=== PATIENT | female | born 1990 | race Caucasian/White ===

== ENCOUNTER 2017-06-08 12:19 | Inpatient (IN) | payer MEDICAID ==
[~2017-06-08] VITALS: Ht 144.8 cm; Wt 85.1 kg
[2017-06-08 13:13] VITALS: BP 170/83; PULSE 62; RESP 19; Ht 144.8 cm; Wt 85.1 kg
[2017-06-08] MEDS ORDERED: PREN1TAB79 PO (13:15)
[2017-06-08 13:30] LABS: BASOPHILS % 0.3 % (0.0-2.0); EOSINOPHILS # 0.1 10^3/ul (0.0-0.5); HEMATOCRIT 38.2 % (37.0-47.0); HEMOGLOBIN 12.4 g/dl (12.0-16.0); LYMPHOCYTES # 1.5 10^3/ul (0.8-2.9); LYMPHOCYTES % 16.2 % (15.0-51.0); MEAN CORPUSCULAR HEMOGLOBIN 27.8 pg (29.0-33.0); MEAN CORPUSCULAR HGB CONC 32.5 g/dl (32.0-37.0); MEAN CORPUSCULAR VOLUME 85.7 fl (82.0-101.0); MEAN PLATELET VOLUME 11.3 fl (7.4-10.4); MONOCYTE # 0.4 10^3/ul (0.3-0.9); MONOCYTES % 4.5 % (0.0-11.0); NEUTROPHILS % 77.4 % (39.0-77.0); NUCLEATED RED BLOOD CELLS% 0.2 /100WBC (0.0-0.0); PLATELET COUNT 362 10^3/UL (140-415); RED BLOOD COUNT 4.46 10^6/ul (4.20-5.40); RED CELL DISTRIBUTION WIDTH 14.4 % (11.5-14.5)
[2017-06-08] MEDS ORDERED: LACTATED RINGER'S 250 ML IV ONE (13:30)
[2017-06-08 13:53] LABS: INR 0.81; PROTIME 11.2 Sec (12.2-14.2); PT RATIO 0.9
[2017-06-08 13:54] LABS: PARTIAL THROMBOPLASTIN TIME 24.7 Sec (25.0-35.0)
[2017-06-08 14:05] LABS: ALBUMIN 3.7 g/dl (3.3-4.9); ALBUMIN/GLOBULIN RATIO 0.97; BILIRUBIN,INDIRECT 0.1 mg/dl (0-1.1); BILIRUBIN,TOTAL 0.1 mg/dl (0.2-1.3); CALCIUM 9.4 mg/dl (8.4-10.2); CREATININE 0.58 mg/dl (0.44-1.00); POTASSIUM 4.4 mmol/L (3.5-5.1); TOTAL PROTEIN 7.5 g/dl (6.1-8.1); URIC ACID 6.1 mg/dl (3.1-7.9)
--- NOTE | 2017-06-08 14:56 | TRIAGE ---
OB Triage Datetime Report Generated by CPN: 06/08/2017 14:56 Datetime: 06/08/2017 14:53 Stage of : OB Triage Maternal Assessment Level of Consciousness: Fully Conscious DTR's/Clonus: DTRs 1+ Headache: Occipital Breath Sounds, Left: Clear and Equal Breath Sounds, Right: Clear and Equal Nausea/Vomiting: Denies RUQ Epigastric Pain: Denies Labor Evaluation Frequency: NONE Monitor Mode: External Resting Tone [place]: Relaxed Heart Rate FHR Baseline Rate: 145 Monitor Mode: External US Variability: Moderate 6-25 bpm Accelerations: 15X15 Decelerations: None Category: Category I Pain Assessment Pain Scale: 0 Pain Presence: None/Denies Pain Type: N/A Pain Goal: 3 Vaginal Exam Membrane Status: Intact Datetime: 06/08/2017 13:58 Stage of : OB Triage Maternal Assessment Level of Consciousness: Fully Conscious DTR's/Clonus: DTRs 1+ Headache: Occipital Breath Sounds, Left: Clear and Equal Breath Sounds, Right: Clear and Equal Nausea/Vomiting: Denies RUQ Epigastric Pain: Denies Labor Evaluation Frequency: 4-5 Monitor Mode: External Duration (sec)2399: 60 Quality: Mild Pattern: Normal: <= 5 Contractions in 10 Minutes Resting Tone [place]: Relaxed Heart Rate FHR Baseline Rate: 145 Monitor Mode: External US Variability: Moderate 6-25 bpm Accelerations: 15X15 Decelerations: None Category: Category I Pain Assessment Pain Scale: 0 Pain Presence: None/Denies Pain Type: N/A Pain Goal: 3 Vaginal Exam Membrane Status: Intact Datetime: 06/08/2017 13:35 Stage of : OB Triage Datetime: 06/08/2017 13:00 Stage of : OB Triage Maternal Assessment Level of Consciousness: Fully Conscious DTR's/Clonus: DTRs 1+ Headache: Occipital Breath Sounds, Left: Clear and Equal Breath Sounds, Right: Clear and Equal Nausea/Vomiting: Denies RUQ Epigastric Pain: Denies Monitor Mode: External Duration (sec)2399: 60 Quality: Mild Pattern: Normal: <= 5 Contractions in 10 Minutes Resting Tone [place]: Relaxed Heart Rate FHR Baseline Rate: 150 Monitor Mode: External US Variability: Moderate 6-25 bpm Accelerations: 15X15 Decelerations: None Category: Category I Pain Assessment Pain Scale: 0 Pain Presence: None/Denies Pain Type: N/A Pain Goal: 3 Vaginal Exam Membrane Status: Intact Datetime: 06/08/2017 12:48 Maternal Assessment Level of Consciousness: Fully Conscious DTR's/Clonus: DTRs 1+ Headache: Occipital Blurred Vision: No Respiratory Effort: Unlabored Breath Sounds, Left: Clear and Equal Breath Sounds, Right: Clear and Equal Nausea/Vomiting: Denies RUQ Epigastric Pain: Denies Facial Edema: 2+ Labor Evaluation Frequency: X2 Monitor Mode: External Duration (sec)2399: 60 Quality: Mild Pattern: Normal: <= 5 Contractions in 10 Minutes Resting Tone [place]: Relaxed Heart Rate FHR Baseline Rate: 150 Monitor Mode: External US Variability: Moderate 6-25 bpm Accelerations: 15X15 Decelerations: None Category: Category I Pain Assessment Pain Scale: 0 Pain Presence: None/Denies Pain Type: N/A Pain Goal: 3 Vaginal Exam Membrane Status: Intact Datetime: 06/08/2017 12:25 Assessment Type: Triage Maternal Assessment Level of Consciousness: Fully Conscious DTR's/Clonus: DTRs 2+; No Clonus Headache: Denies Blurred Vision: No Respiratory Effort: Unlabored; Regular Rhythm; Equal Expansion Breath Sounds, Left: Clear and Equal Breath Sounds, Right: Clear and Equal Nausea/Vomiting: Denies RUQ Epigastric Pain: Denies Lower Extremities Edema: Bilateral Lower Extremities Degree: 1+ Upper Extremities Edema: None Degree: None Facial Edema: None Fall Risk Assessment History of Falling: (0) No Secondary Diagnosis: (0) No Ambulatory Aid: (0) Bedrest/Nurse Assist IV Therapy: (0) No Gait: (0) Normal/Bedrest/Immobile Mental Status: (0) Oriented to Own Ability Fall Score: 0 Fall Risk Score Definition: No Risk: No action required Datetime: 06/08/2017 12:13 Time of Arrival: 06/08/2017 12:13 EGA: 33.3 Arrived By: Ambulatory Arrived From: Other Unit in Hospital Chief Complaint: PT SENT FROM PERINATOLOGY FOR UNCOMPLIANT INSULING USE AND PT HAS NOT BEEN CHECKI NG HER SUGAR SINCE THURSDAY NOR USIN HER INSULING BECAUSE SHE GOT A HEADACHE AND FOR ELEVATED BLOOD [place] ESSURES Movement: Present Contractions: Denies/Absent Rupture of Membranes: Denies Vaginal Discharge: Denies Recent Sexual Intercouse: Denies Abdominal Trauma: Not Applicable Additional Patient Complaints: NONE Time Provider Notified: 06/08/2017 12:13 Provider Notified: RAVEN Initial Plan: MONITOR, BLOOD SUGARS, PIH LABS, LR IV HYDRATION
[2017-06-08 15:34] LABS: ADD UMIC NO; UR ASCORBIC ACID NEGATIVE (NEGATIVE); UR BILIRUBIN (Dip) NEGATIVE (NEGATIVE); UR BLOOD (Dip) NEGATIVE (NEGATIVE); UR CLARITY CLEAR (CLEAR); UR COLOR STRAW (YELLOW); UR GLUCOSE (Dip) NEGATIVE (NEGATIVE); UR KETONES (Dip) NEGATIVE (NEGATIVE); UR LEUKOCYTE ESTERASE (Dip) NEGATIVE Leu/ul (NEGATIVE); UR NITRITE (Dip) NEGATIVE (NEGATIVE); UR SPECIFIC GRAVITY (Dip) 1.003 (1.003-1.030); UR TOTAL PROTEIN (Dip) NEGATIVE (NEGATIVE); UR UROBILINOGEN (Dip) NEGATIVE (NEGATIVE)
[2017-06-08] MEDS: LACTATED RINGER'S 1,000 ML IV SCH (15:43)
[2017-06-08] MEDS ORDERED: GLUCOSE GEL 15 GRAM TUBE BUCCAL PRN (16:00)
[2017-06-08] MEDS ORDERED: GLUCAGON 1 MG INJ IM PRN (16:00)
[2017-06-08] MEDS ORDERED: DEXTROSE 50% 50 ML SYRINGE IV PRN ×2 (16:00)
[2017-06-08] MEDS ORDERED: GLUCOSE GEL 15 GRAM TUBE PO PRN ×2 (16:00)
[2017-06-08] MEDS: ACCU-CHEK XX SCH ×2 (17:35→22:00)
--- NOTE | 2017-06-08 17:52 | RADRPT ---
PROCEDURE: CERVICAL LENGTH ULTRASOUND CLINICAL INDICATION: labor at 33 weeks gestational age. TECHNIQUE: Trans-vaginal imaging of the cervical canal was performed utilizing jennings-scale imaging. Sagittal and transverse images were obtained. Trans-abdominal images were also obtained. The maribel ges were reviewed on a PACS workstation. COMPARISON: None. FINDINGS: There is a single live intrauterine . heart rate is 157 beats per minute. Position is breech and placenta is anterior grade II. There is no placenta previa. The cervix is closed with a length of 5.9 cm. IMPRESSION: 1. Cervical length is 5.9 cm. RPTAT: QQ .Brooks Sharp MD, MD Date Time Electronically viewed and signed by .Brooks Sharp MD, on 06/08/2017 17:52 .R/
[2017-06-08] MEDS ORDERED: ACCU-CHEK XX SCH ×2 (19:35→20:05)
--- NOTE | 2017-06-08 20:09 | RADRPT ---
AMENDMENT: 06/09/2017 1:16:14 AM Foster Davis Md ADDENDUM: YOJANA is 8.8 cm. First line of Impression should read 1. Single live intrauterine fetus, breech presentation. PROCEDURE: US Obstetrical , limited CLINICAL INDICATION: Elevated blood pressure, noncompliant diabetes, biophysical profile with YOJANA TECHNIQUE: Multiple real-time images were acquired of the patient's maternal abdomen utilizing a curved array transducer. COMPARISON: 06/08/2017 FINDINGS: There is a single live intrauterine fetus positioned breech.. The placenta is implanted anteriorly and is grade 1. There is no placenta previa or abruptio. The amniotic fluid index measures 88.3 millimeter, which falls between the 5th and 50th percentile a nd is therefore normal. The heart rate is 144 beats per minute. Biophysical profile score: 8/8. IMPRESSION: 1. Single live 8-year in fetus, breech presentation. 2. Anterior placenta, grade 1, no previa. 3. Amniotic fluid index falls within the lower limits of normal. 4. Biophysical profile score: 8/8. .Foster Davis MD, Date Time Electronically viewed and signed by .Foster Davis MD, MD on 06/09/2017 01:16 .K/
[2017-06-09] MEDS: LACTATED RINGER'S 1,000 ML IV SCH (00:08)
--- NOTE | 2017-06-09 01:09 | HP ---
Date/Time of Note Date/Time of Note DATE: 06/09/17 TIME: 00:48 OB - History Hx of Present Free Text/Dictation 27 Year-old G1 with SIUP at 33 3/7 weeks [address] [place] [address] us with GDM admitted for control of her BS. She states was diagnosed with GDM one month ago, placed on insulin, however she did not get any insulin in last week. She is not sure how much insulin previously used and it seems might never receive it. She states good movement. She denies nausea, vomiting, shortness of breath, chest pain, abdominal pain, contractions, headache, visual changes, vaginal bleeding or LOF. Last Menstrual Period: Nov 19, 2016 Estimated Due Date: Jul 24, 2017 : 1 Para: 0 Spontaneous : 0 Therapeutic : 0 Care: Good Care Ultrasounds: Normal mid trimester US Obstetrical Complications: Gestational Diabetes, Gestational Hypertension Medical Complications: Other (As noted above) Past Family/Social History * Past Medical, Surgical, Family and Obstetric Histories reviewed from chart. Blood Type: O+ Rubella: immune RPR/VDRL: Negative GBS Status: Unknown HBsAG: Negative OB Admission Exam Vital Signs Vital Signs Vital Signs Date Time Temp Pulse Resp B/P Pulse Ox O2 Delivery O2 Flow Rate FiO2 06/08/17 13:13 98.2 62 19 170/83 99 Room Air Physical Exam HEENT: WNL Heart: Rhythm Normal Lungs: Clear Abdomen: WNL Extremities: Normal Reflexes: Normal Cervical Dilatation: None Effacement: 0% Station: Ballotable Membranes: Intact Heart Rate: 130's Accelerations: Accelerations Present Decelerations: No Decelerations Varibility: Moderate Contractions on Admission: None Last 72 hourBlood Glucose Bedside Glucose - 72 Hours Test 06/08/17 12:37 06/08/17 17:25 06/08/17 20:07 Bedside Glucose 111mg/dL (70-220) 86mg/dL (70-220) 100mg/dL (70-220) Last 72 hours Lab Results CBC & BMP 06/08/17 13:09 Liver Function Test 06/08/17 13:09 Alanine Aminotransferase (ALT/SGPT) 50 Albumin 3.7 Alkaline Phosphatase 253 H Aspartate Amino Transf (AST/SGOT) 41 Direct Bilirubin 0.00 Total Protein 7.5 OB Assessment/Plan Other plan: 27 Year-old G1 with SIUP at 33 3/7 weeks with GDM and GHTN 1) Care: - FHR: No sign of metabolic acidosis- Category I - Continuous EFM, toco - PNV daily - Labs and us reviewed with patient - O+/Rubella: Immune 2) GDM: - Recent BS 101 and 100. Currently is not on any medication. Will cont to check FBS and 2 hPP, base of her BS log will make a decision regarding only diabetic diet or medical treatment. Nutrition consult ordered. 3) GHTN: She had elevated BP on admission, however all BPs since are nml. Labs : wnl except uric acid of 6.1. She is collecting 24 h urine. No s/sx of preeclampsia with severe features. - Please see the orders - Admission, and expectations were discussed in detail. All questions answered AURY ROCKWELL Jun 09, 2017 01:03
[2017-06-09] MEDS ORDERED: PRENATAL VITAMIN PO SCH (09:00)
[2017-06-09] MEDS ORDERED: FERROUS SULFATE (EC) 325 MG TAB PO SCH (09:00)
[2017-06-09 15:49] LABS: SCRET 0.58 mg/dl (0.44-1.00)
== END 2017-06-09 16:50 | disposition home or self-care (01) | DRG 781 ==
LOC: L-D 12:19 → OBT 12:19 → OBG 14:53 → OBT 14:53
PROVIDERS: ADMIT Obstetrics & Gynecology; ATTEND Obstetrics & Gynecology
PROC: 4A0HX4Z Measurement of Products of Conception, Cardiac Electrical Activity, External Approach (ICD-10-PCS; principal; 2017-06-08)
DX: O24.419 Gestational diabetes mellitus in pregnancy, unspecified control (principal); O13.3 Gestational [pregnancy-induced] hypertension without significant proteinuria, third trimester; Z91.14 Patient's other noncompliance with medication regimen; Z3A.33 33 weeks gestation of pregnancy
CPT/HCPCS: 36415; 76817; 76818; 80053; 81003; 82575; 82962; 84156; 84560; 85025; 85610; 85730; 86900; 86901; 96360; 96361; G0463; J7120

== ENCOUNTER 2017-06-11 13:17 | Outpatient (CLI) | payer MEDICAID ==
[~2017-06-11] VITALS: Ht 144.8 cm; Wt 71.0 kg
[~2017-06-11 13:17] MED LIST: PREN1TAB79 PO
[2017-06-11 13:44] VITALS: Ht 144.8 cm; Wt 71.0 kg
[2017-06-11 13:45] VITALS: BP 163/90; PULSE 70; RESP 18
[2017-06-11] MEDS ORDERED: LABE200T25 PO (13:54)
[2017-06-11] MEDS ORDERED: METF500T4 PO (13:56)
[2017-06-11 15:00] LABS: BASOPHILS % 0.4 % (0.0-2.0); EOSINOPHILS # 0.1 10^3/ul (0.0-0.5); EOSINOPHILS % 0.8 % (0.0-7.0); HEMATOCRIT 35.8 % (37.0-47.0); HEMOGLOBIN 11.6 g/dl (12.0-16.0); LYMPHOCYTES # 1.3 10^3/ul (0.8-2.9); LYMPHOCYTES % 17.5 % (15.0-51.0); MEAN CORPUSCULAR HEMOGLOBIN 27.7 pg (29.0-33.0); MEAN CORPUSCULAR HGB CONC 32.4 g/dl (32.0-37.0); MEAN CORPUSCULAR VOLUME 85.4 fl (82.0-101.0); MEAN PLATELET VOLUME 11.6 fl (7.4-10.4); MONOCYTE # 0.4 10^3/ul (0.3-0.9); MONOCYTES % 5.1 % (0.0-11.0); NEUTROPHIL # 5.8 10^3/ul (1.6-7.5); NEUTROPHILS % 75.5 % (39.0-77.0); NUCLEATED RED BLOOD CELLS% 0.3 /100WBC (0.0-0.0); PLATELET COUNT 315 10^3/UL (140-415); RED BLOOD COUNT 4.19 10^6/ul (4.20-5.40); RED CELL DISTRIBUTION WIDTH 14.4 % (11.5-14.5); WHITE BLOOD COUNT 7.7 10^3/ul (4.8-10.8)
[2017-06-11 15:20] LABS: ALBUMIN 3.7 g/dl (3.3-4.9); ALBUMIN/GLOBULIN RATIO 1.05; CALCIUM 9.1 mg/dl (8.4-10.2); CREATININE 0.61 mg/dl (0.44-1.00); POTASSIUM 4.8 mmol/L (3.5-5.1); TOTAL PROTEIN 7.2 g/dl (6.1-8.1); URIC ACID 6.3 mg/dl (3.1-7.9)
--- NOTE | 2017-06-11 15:28 | RADRPT ---
PROCEDURE: US OB biophysical profile. CLINICAL INDICATION: Biophysical profile TECHNIQUE: Multiple sonographic images of the pelvis were obtained. The images were reviewed on a PACS workstation. COMPARISON: None FINDINGS: There is a single live intrauterine , in cephalic presentation. A normal heart rate i s identified measuring 142.5 beats per minute. The amniotic fluid index is within normal limits valerio uring 8.4 cm. The placenta is grade 1, located anteriorly. Biophysical profile: movement 2/2 tone 2/2. breathing 2/2 YOJANA 2/2 Total 03/03 IMPRESSION: 1. Biophysical profile score of 88. 2. Single live intrauterine in cephalic presentation with normal heart rate of 142.5 bpm. 3. Normal amniotic fluid index of 8.4 cm. Physician Courtney Date Time Electronically viewed and signed by Physician Courtney on 06/11/2017 15:27 ABEL/
[2017-06-11 15:29] LABS: ADD UMIC NO; UR ASCORBIC ACID NEGATIVE (NEGATIVE); UR BACTERIA MODERATE /HPF (NONE SEEN); UR BILIRUBIN (Dip) NEGATIVE (NEGATIVE); UR BLOOD (Dip) NEGATIVE (NEGATIVE); UR CLARITY SLIGHTLY CLOUDY (CLEAR); UR COLOR STRAW (YELLOW); UR GLUCOSE (Dip) NEGATIVE (NEGATIVE); UR KETONES (Dip) NEGATIVE (NEGATIVE); UR LEUKOCYTE ESTERASE (Dip) NEGATIVE Leu/ul (NEGATIVE); UR NITRITE (Dip) NEGATIVE (NEGATIVE); UR RBC 0 /HPF (0-5); UR SPECIFIC GRAVITY (Dip) 1.002 (1.003-1.030); UR SQUAMOUS EPITHELIAL CELL MODERATE /HPF (FEW); UR TOTAL PROTEIN (Dip) NEGATIVE (NEGATIVE); UR UROBILINOGEN (Dip) NEGATIVE (NEGATIVE)
--- NOTE | 2017-06-11 16:34 | TRIAGE ---
OB Triage Datetime Report Generated by CPN: 06/11/2017 16:34 Datetime: 06/11/2017 16:00 Stage of : OB Triage Maternal Assessment Level of Consciousness: Fully Conscious Labor Evaluation Frequency: NONE Monitor Mode: External Resting Tone [place]: Relaxed Heart Rate FHR Baseline Rate: 145 Monitor Mode: External US Variability: Moderate 6-25 bpm Accelerations: 15X15 Decelerations: None Pain Assessment Pain Scale: 0 Pain Goal: 3 Vaginal Exam Membrane Status: Intact Vaginal Bleeding: None Datetime: 06/11/2017 15:00 Stage of : OB Triage Assessment Type: Triage Maternal Assessment Level of Consciousness: Fully Conscious DTR's/Clonus: DTRs 3+; No Clonus Headache: Denies Blurred Vision: No Respiratory Effort: Unlabored; Regular Rhythm; Equal Expansion Breath Sounds, Left: Clear and Equal Breath Sounds, Right: Clear and Equal Nausea/Vomiting: Denies RUQ Epigastric Pain: Denies Lower Extremities Edema: Bilateral Lower Extremities Degree: 1+ Upper Extremities Edema: None Degree: None Facial Edema: None Fall Risk Assessment History of Falling: (0) No Secondary Diagnosis: (0) No Ambulatory Aid: (0) Bedrest/Nurse Assist IV Therapy: (0) No Gait: (0) Normal/Bedrest/Immobile Mental Status: (0) Oriented to Own Ability Fall Score: 0 Fall Risk Score Definition: No Risk: No action required Labor Evaluation Frequency: NONE Monitor Mode: External Resting Tone [place]: Relaxed Heart Rate FHR Baseline Rate: 145 Monitor Mode: External US Variability: Moderate 6-25 bpm Accelerations: 15X15 Decelerations: None Category: Category I Pain Assessment Pain Scale: 0 Pain Goal: 3 Vaginal Exam Membrane Status: Intact Vaginal Bleeding: None Datetime: 06/11/2017 13:57 Labor Evaluation Frequency: 0 Monitor Mode: External Pattern: Normal: <= 5 Contractions in 10 Minutes Resting Tone [place]: Relaxed Heart Rate FHR Baseline Rate: 140 Monitor Mode: External US Variability: Moderate 6-25 bpm Accelerations: 15X15 Decelerations: None Category: Category I Datetime: 06/11/2017 13:41 Time of Arrival: 06/11/2017 13:19 EGA: 33.6 Arrived By: Ambulatory Chief Complaint: PT. CAME FROM NST FOR HIGH BP'S; BABY NOT REACTIVE; PT. A2DM. PER PT. GOT PRES CRIBED METFORMIN AND LABETALOL TODAY. Movement: Present Contractions: Denies/Absent Rupture of Membranes: Denies Vaginal Bleeding: None Vaginal Discharge: Denies Recent Sexual Intercouse: Denies Abdominal Trauma: Not Applicable Patient Complaints: None Time Provider Notified: 06/11/2017 14:09 Provider Notified: [facility] Initial Plan: TOCO/ US; BPP, PIH PANEL, 24 HOUR URINE COLLECTION- CALL LABORIST TO EVALUATE PT. Datetime: 06/09/2017 16:08 Temperature Route: Oral Pain Assessment Pain Scale: 0 Pain Goal: 3 Datetime: 06/09/2017 14:10 Stage of : Antepartum Maternal Assessment Level of Consciousness: Fully Conscious Labor Evaluation Frequency: 6UC/HR Monitor Mode: External Duration (sec)2399: 40-70 Quality: Mild Resting Tone [place]: Relaxed Heart Rate FHR Baseline Rate: 135 Monitor Mode: External US Variability: Moderate 6-25 bpm Accelerations: 15X15 Decelerations: None Category: Category I Pain Assessment Pain Scale: 0 Pain Goal: 3 Vaginal Exam Membrane Status: Intact Vaginal Bleeding: None Datetime: 06/09/2017 13:26 Monitor Mode: External Monitor Mode: External US Datetime: 06/09/2017 13:00 Stage of : Antepartum Maternal Assessment Level of Consciousness: Fully Conscious Labor Evaluation Frequency: NONE Monitor Mode: External Resting Tone [place]: Relaxed Heart Rate FHR Baseline Rate: 140 Monitor Mode: External US Variability: Moderate 6-25 bpm Accelerations: 15X15 Decelerations: None Pain Assessment Pain Scale: 0 Pain Goal: 3 Vaginal Exam Membrane Status: Intact Vaginal Bleeding: None Datetime: 06/09/2017 11:52 Stage of : Antepartum Temperature Route: Oral Datetime: 06/09/2017 11:49 Monitor Mode: External Monitor Mode: External US Datetime: 06/09/2017 11:00 Stage of : Antepartum Maternal Assessment Level of Consciousness: Fully Conscious Labor Evaluation Frequency: NONE Monitor Mode: External Resting Tone [place]: Relaxed Heart Rate FHR Baseline Rate: 135 Monitor Mode: External US Variability: Moderate 6-25 bpm Accelerations: 15X15 Decelerations: None Category: Category I Pain Assessment Pain Scale: 0 Pain Goal: 3 Vaginal Exam Membrane Status: Intact Vaginal Bleeding: None Datetime: 06/09/2017 09:00 Stage of : Antepartum Maternal Assessment Level of Consciousness: Fully Conscious Labor Evaluation Frequency: NONE Monitor Mode: External Resting Tone [place]: Relaxed Heart Rate FHR Baseline Rate: 135 Monitor Mode: External US Variability: Moderate 6-25 bpm Accelerations: 15X15 Decelerations: None Category: Category I Pain Assessment Pain Scale: 0 Pain Goal: 3 Vaginal Exam Membrane Status: Intact Vaginal Bleeding: None Datetime: 06/09/2017 08:59 Bedside Blood Glucose: 91 Datetime: 06/09/2017 08:00 Stage of : Antepartum Maternal Assessment Level of Consciousness: Fully Conscious Labor Evaluation Frequency: 1uc/hr Monitor Mode: External Duration (sec)2399: 70 Quality: Mild Resting Tone [place]: Relaxed Heart Rate FHR Baseline Rate: 145 Monitor Mode: External US Variability: Moderate 6-25 bpm Accelerations: 15X15 Decelerations: None Category: Category I Pain Assessment Pain Scale: 0 Pain Goal: 3 Vaginal Exam Membrane Status: Intact Vaginal Bleeding: None Datetime: 06/09/2017 07:34 Stage of : Antepartum Temperature Route: Oral Datetime: 06/09/2017 07:32 Monitor Mode: External Monitor Mode: External US Datetime: 06/09/2017 07:30 Assessment Type: Ongoing Assessment Maternal Assessment Level of Consciousness: Fully Conscious DTR's/Clonus: DTRs 2+; No Clonus Headache: Denies Blurred Vision: No Respiratory Effort: Unlabored; Regular Rhythm; Equal Expansion Breath Sounds, Left: Clear and Equal Breath Sounds, Right: Clear and Equal Nausea/Vomiting: Denies RUQ Epigastric Pain: Denies Lower Extremities Edema: Bilateral Lower Extremities Degree: 1+ Upper Extremities Edema: None Degree: None Facial Edema: None Fall Risk Assessment History of Falling: (0) No Secondary Diagnosis: (0) No Ambulatory Aid: (0) Bedrest/Nurse Assist IV Therapy: (20) Yes Gait: (0) Normal/Bedrest/Immobile Mental Status: (0) Oriented to Own Ability Fall Score: 20 Fall Risk Score Definition: No Risk: No action required Datetime: 06/09/2017 07:02 Heart Rate FHR Baseline Rate: 150 Datetime: 06/09/2017 07:00 Stage of : Antepartum Maternal Assessment Level of Consciousness: Fully Conscious Labor Evaluation Frequency: 6uc/hr Monitor Mode: External Duration (sec)2399: 40-70 Quality: Mild Resting Tone [place]: Relaxed Monitor Mode: External US (Annotations: unable to monitor, baby off efm) Pain Assessment Pain Scale: 0 Pain Goal: 3 Vaginal Exam Membrane Status: Intact Vaginal Bleeding: None Datetime: 06/09/2017 06:25 Stage of : Antepartum Heart Rate FHR Baseline Rate: 140 Monitor Mode: External US Datetime: 06/09/2017 06:04 Stage of : Antepartum Headache: Denies Blurred Vision: No RUQ Epigastric Pain: Denies Facial Edema: None Monitor Mode: External Resting Tone [place]: Relaxed Heart Rate FHR Baseline Rate: 140 Monitor Mode: External US Pain Assessment Pain Scale: 0 Pain Presence: None/Denies Datetime: 06/09/2017 04:50 Stage of : Antepartum Maternal Assessment Level of Consciousness: Fully Conscious Headache: Denies Blurred Vision: No Nausea/Vomiting: Denies RUQ Epigastric Pain: Denies Facial Edema: None Monitor Mode: External Quality: Mild Pattern: Normal: <= 5 Contractions in 10 Minutes Resting Tone [place]: Relaxed Heart Rate FHR Baseline Rate: 135 Monitor Mode: External US FHR Baseline Changes: No Baseline Change Variability: Moderate 6-25 bpm Accelerations: 15X15 Decelerations: None Category: Category I Pain Assessment Pain Scale: 0 Pain Presence: None/Denies Pain Type: N/A Datetime: 06/09/2017 03:58 Stage of : Antepartum Monitor Mode: External Quality: Mild Pattern: Normal: <= 5 Contractions in 10 Minutes Resting Tone [place]: Relaxed Heart Rate FHR Baseline Rate: 135 Monitor Mode: External US FHR Baseline Changes: No Baseline Change Variability: Moderate 6-25 bpm Accelerations: 15X15 Decelerations: Variable Category: Category II Pain Assessment Pain Scale: 0 Pain Presence: None/Denies Datetime: 06/09/2017 03:00 Stage of : Antepartum Pattern: Normal: <= 5 Contractions in 10 Minutes Resting Tone [place]: Relaxed Heart Rate FHR Baseline Rate: 140 Monitor Mode: External US FHR Baseline Changes: No Baseline Change Variability: Moderate 6-25 bpm Accelerations: 15X15 Decelerations: None Category: Category I Datetime: 06/09/2017 02:00 Stage of : Antepartum Monitor Mode: External Quality: Mild Pattern: Normal: <= 5 Contractions in 10 Minutes Resting Tone [place]: Relaxed Heart Rate FHR Baseline Rate: 135 Monitor Mode: External US FHR Baseline Changes: No Baseline Change Variability: Moderate 6-25 bpm Accelerations: 15X15 Decelerations: None Category: Category I Pain Assessment Pain Scale: 0 Pain Presence: None/Denies Datetime: 06/09/2017 01:01 Labor Evaluation Frequency: 3-15 Monitor Mode: External Duration (sec)2399: 30-60 Quality: Mild Pattern: Normal: <= 5 Contractions in 10 Minutes Resting Tone [place]: Relaxed Contraction Comments: Pt denies feeling cramping or discomfort Heart Rate FHR Baseline Rate: 140 Monitor Mode: External US FHR Baseline Changes: No Baseline Change Variability: Moderate 6-25 bpm Accelerations: 15X15 Decelerations: None Category: Category I Datetime: 06/09/2017 00:15 Stage of : Antepartum Monitor Mode: External Pattern: Normal: <= 5 Contractions in 10 Minutes Resting Tone [place]: Relaxed Heart Rate FHR Baseline Rate: 140 Monitor Mode: External US FHR Baseline Changes: No Baseline Change Variability: Moderate 6-25 bpm Accelerations: 15X15 Decelerations: None Category: Category I Pain Assessment Pain Scale: 0 Pain Presence: None/Denies Pain Type: N/A Datetime: 06/08/2017 23:02 Stage of : Antepartum Monitor Mode: External Pattern: Normal: <= 5 Contractions in 10 Minutes Resting Tone [place]: Relaxed Heart Rate FHR Baseline Rate: 135 Monitor Mode: External US FHR Baseline Changes: No Baseline Change Variability: Moderate 6-25 bpm Accelerations: 15X15 Decelerations: None Category: Category I Pain Assessment Pain Scale: 0 Pain Presence: None/Denies Datetime: 06/08/2017 22:17 Stage of : Antepartum Maternal Assessment Level of Consciousness: Fully Conscious Headache: Denies Blurred Vision: No Nausea/Vomiting: Denies RUQ Epigastric Pain: Denies Monitor Mode: External Pattern: Normal: <= 5 Contractions in 10 Minutes Resting Tone [place]: Relaxed Heart Rate FHR Baseline Rate: 145 Monitor Mode: External US FHR Baseline Changes: No Baseline Change Pain Assessment Pain Scale: 0 Pain Presence: None/Denies Pain Type: N/A Datetime: 06/08/2017 21:16 Stage of : Antepartum Datetime: 06/08/2017 21:00 Monitor Mode: External Pattern: Normal: <= 5 Contractions in 10 Minutes Resting Tone [place]: Relaxed Heart Rate FHR Baseline Rate: 145 Monitor Mode: External US FHR Baseline Changes: No Baseline Change Variability: Moderate 6-25 bpm Accelerations: 15X15 Datetime: 06/08/2017 20:04 Stage of : Antepartum Bedside Blood Glucose: 100 Monitor Mode: External Pattern: Normal: <= 5 Contractions in 10 Minutes Resting Tone [place]: Relaxed Heart Rate FHR Baseline Rate: 150 Monitor Mode: External US Pain Assessment Pain Scale: 0 Pain Presence: None/Denies Pain Type: N/A Datetime: 06/08/2017 19:50 Assessment Type: Ongoing Assessment Maternal Assessment Level of Consciousness: Fully Conscious DTR's/Clonus: DTRs 2+; No Clonus Headache: Denies Blurred Vision: No Respiratory Effort: Unlabored; Regular Rhythm; Equal Expansion Breath Sounds, Left: Clear and Equal Breath Sounds, Right: Clear and Equal Nausea/Vomiting: Denies RUQ Epigastric Pain: Denies Lower Extremities Edema: Bilateral Lower Extremities Degree: 1+ Upper Extremities Edema: None Degree: None Facial Edema: None Fall Risk Assessment History of Falling: (0) No Secondary Diagnosis: (0) No Ambulatory Aid: (0) Bedrest/Nurse Assist IV Therapy: (20) Yes Gait: (0) Normal/Bedrest/Immobile Mental Status: (0) Oriented to Own Ability Fall Score: 20 Fall Risk Score Definition: No Risk: No action required Datetime: 06/08/2017 19:14 Stage of : Antepartum Datetime: 06/08/2017 18:00 Labor Evaluation Frequency: 0ccassional Monitor Mode: External Duration (sec)2399: 60-90 Quality: Mild Heart Rate FHR Baseline Rate: 140 Monitor Mode: External US Variability: Moderate 6-25 bpm Accelerations: 15X15 Decelerations: None Category: Category I Datetime: 06/08/2017 17:37 Monitor Mode: Palpation Quality: Mild Comments: baby is breech by palpation and verified through u.s. Pain Presence: None/Denies Pain Assessment Comments: pt. denies uc's Datetime: 06/08/2017 17:25 Bedside Blood Glucose: 86 Datetime: 06/08/2017 17:06 Maternal Assessment Level of Consciousness: Fully Conscious Headache: Denies Blurred Vision: No Respiratory Effort: Unlabored Nausea/Vomiting: Denies RUQ Epigastric Pain: Denies Pain Presence: None/Denies Datetime: 06/08/2017 16:41 Stage of : Antepartum Maternal Assessment Level of Consciousness: Fully Conscious Headache: Denies Nausea/Vomiting: Denies RUQ Epigastric Pain: Denies Labor Evaluation Frequency: 0/hr Monitor Mode: External Heart Rate FHR Baseline Rate: 150 Monitor Mode: External US Variability: Moderate 6-25 bpm Accelerations: 10X10 Pain Assessment Pain Scale: 0 Pain Presence: None/Denies Vaginal Bleeding: None Datetime: 06/08/2017 16:39 Assessment Type: Ongoing Assessment Heart Rate FHR Baseline Rate: 150 Variability: Moderate 6-25 bpm Accelerations: 10X10 Decelerations: None Datetime: 06/08/2017 15:42 Interventions: Side to Side Decelerations: Variable Datetime: 06/08/2017 15:30 Stage of : Antepartum Datetime: 06/08/2017 15:27 Assessment Type: Admission Assessment Vaginal Bleeding: None Maternal Assessment Level of Consciousness: Fully Conscious DTR's/Clonus: DTRs 2+; No Clonus Headache: Denies Blurred Vision: No Respiratory Effort: Unlabored; Regular Rhythm; Equal Expansion Breath Sounds, Left: Clear and Equal Breath Sounds, Right: Clear and Equal Nausea/Vomiting: Denies RUQ Epigastric Pain: Denies Lower Extremities Edema: Bilateral Lower Extremities (Annotations: feet 1+ edema) Upper Extremities Edema: None Facial Edema: None Fall Risk Assessment History of Falling: (0) No Secondary Diagnosis: (0) No Ambulatory Aid: (0) Bedrest/Nurse Assist IV Therapy: (20) Yes (Annotations: rcvd. pt. on 125ml/hr lr) Gait: (0) Normal/Bedrest/Immobile Mental Status: (0) Oriented to Own Ability Fall Score: 20 Fall Risk Score Definition: No Risk: No action required Pain Assessment Pain Scale: 0 Pain Presence: None/Denies Pain Assessment Comments: pt. states she had a headache on brandi or sat. and stopped taking her i nsulin and last checked her blood sugar on brandi 06/05/17 Vaginal Exam Membrane Status: Intact Datetime: 06/08/2017 15:20 Assessment Type: Triage Datetime: 06/08/2017 15:00 Stage of : OB Triage Maternal Assessment Level of Consciousness: Fully Conscious DTR's/Clonus: DTRs 1+ Headache: Occipital Breath Sounds, Left: Clear and Equal Breath Sounds, Right: Clear and Equal Nausea/Vomiting: Denies RUQ Epigastric Pain: Denies Labor Evaluation Frequency: NONE Monitor Mode: External Resting Tone [place]: Relaxed Heart Rate FHR Baseline Rate: 145 Monitor Mode: External US Variability: Moderate 6-25 bpm Accelerations: 15X15 Decelerations: None Category: Category I Pain Assessment Pain Scale: 0 Pain Presence: None/Denies Pain Type: N/A Pain Goal: 3 Vaginal Exam Membrane Status: Intact Datetime: 06/08/2017 12:25 Fall Score: 0 Fall Risk Score Definition: No Risk: No action required Datetime: 06/08/2017 12:13 EGA: 33.3
--- NOTE | 2017-06-11 16:46 | CONS ---
Date/Time of Note Date/Time of Note DATE: 06/11/17 TIME: 16:33 Consultation Date/Type/Reason Admit Date/Time June 11, 2017 OB triage consult This patient is a 27 years old primigravida with estimated date of confinement of July 24, 2017 which makes her 33 weeks and 6 days today. She developed diabetes mellitus during this as well as elevated blood pressure for this reason she is being followed in high risk clinic with NST and biophysical profile. There was a suspicion of possible IUGR. .Today she is placed on labetalol 200 mg twice daily as well as Metformin 500 mg nightly. On examination she is a well-developed well-nourished late term with no complaint. Her general vital signs shows a hypertension with blood pressure 163/90 and then again 151/84, pulse rate of 70, respiration 18, and temperature 98.5. Reason for Consultation Eyes: No discharge, No no complaints, No other, No pain, No redness, No visual change ENT: other (Face as well as hands are somewhat edematous), No bleeding, No congestion, No discharge, No dysphagia, No no complaints, No pain, No sore throat Respiratory: No cough, No no complaints, No other, No pain, No pleuritic pain, No shortness of breath, No sputum, No wheezing Cardiovascular: No chest pain, No edema, No lightheadedness, No no complaints, No orthopenea, No other, No palpitations, No paroxysmal nocturnal dyspnea Gastrointestinal: other (No abdominal pain), No blood, No constipation, No decreased appetite, No diarrhea, No flatus, No nausea, No no complaints, No pain, No passing stool, No vomiting Genitourinary: other (Due to lack of contraction pelvic exam was not performed) , No bleeding, No discharge, No dysuria, No flank pain, No hematuria, No no complaints Musculoskeletal: No back pain, No bone/joint pain, No neck pain, No no complaints, No other, No restricted range of motion, No swelling Skin: other, No bruising, No erythema, No laceration, No no complaints, No pruritis, No rash, No skin lesions Neurologic: other (Moderate amount of edema both in hands and lower extremities knee-jerk reflexes are about 2-3+), No confusion, No dizziness, No focal-weakness, No headache, No no complaints , No seizure, No syncope Endocrine: No dry skin, No no complaints, No other, No polydypsia, No polyuria , No temp intolerance Additional Comments On the lab study her serum electrolytes and liver function tests are within normal limits. Urinalysis is normal no evidence of proteinuria no hematuria her CBC is also within normal limits with mild anemia with platelet of 315,000 hemoglobin of 11.6. On ultrasound study report is single live intrauterine in cephalic presentation heart rate of 142 bpm amniotic fluid index was reported 8.4 cm her biophysical profile was reported 03/03 With these sign of impending preeclampsia and possible eclampsia condition was discussed with the patient to rest at home to start collecting 24 hours urine.. And to start taking her medication labetalol 200 mg twice daily as well as metformin 500 mg every night. Return to triage immediately if severe headache chest pain visual disturbances very low movement. Other than that she will be back in 2 days with collected 24-hour urine. Social History Smoking Status: Never smoker Exam/Review of Systems Vital Signs Vitals Vital Signs Date Time Temp Pulse Resp B/P Pulse Ox O2 Delivery O2 Flow Rate FiO2 06/11/17 13:45 98.5 70 18 163/90 Room Air Results Result Diagram: 06/11/17 1426 06/11/17 1426 Results 24 hrs Laboratory Tests Test 06/11/17 14:00 06/11/17 14:26 Urine Color STRAW Urine Clarity SLIGHTLY CLOUDY A Urine pH 7.0 Urine Specific [place] 1.002 L Urine Ketones NEGATIVE Urine Nitrite NEGATIVE Urine Bilirubin NEGATIVE Urine Urobilinogen NEGATIVE Urine Leukocyte Esterase NEGATIVE Urine Microscopic RBC 0 Urine Microscopic WBC 4 Urine Squamous Epithelial Cells MODERATE Urine Bacteria MODERATE Urine Hemoglobin NEGATIVE Urine Glucose NEGATIVE Urine Total Protein NEGATIVE White Blood Count 7.7 Red Blood Count 4.19 L Hemoglobin 11.6 L Hematocrit 35.8 L Mean Corpuscular Volume 85.4 Mean Corpuscular Hemoglobin 27.7 L Mean Corpuscular Hemoglobin Concent 32.4 Red Cell Distribution Width 14.4 Platelet Count 315 Mean Platelet Volume 11.6 H Neutrophils % 75.5 Lymphocytes % 17.5 Monocytes % 5.1 Eosinophils % 0.8 Basophils % 0.4 Nucleated Red Blood Cells % 0.3 H Neutrophils # 5.8 Lymphocytes # 1.3 Monocytes # 0.4 Eosinophils # 0.1 Basophils # 0.0 Nucleated Red Blood Cells # 0.0 Sodium Level 140 Potassium Level 4.8 Chloride Level 107 Carbon Dioxide Level 24 Anion Gap 14 Blood Urea Nitrogen 8 Creatinine 0.61 Glucose Level 101 Uric Acid 6.3 Calcium Level 9.1 Total Bilirubin 0.0 L Direct Bilirubin 0.00 Indirect Bilirubin 0.0 Aspartate Amino Transf (AST/SGOT) 46 Alanine Aminotransferase (ALT/SGPT) 46 Alkaline Phosphatase 253 H Total Protein 7.2 Albumin 3.7 Globulin 3.50 H Albumin/Globulin Ratio 1.05 ALYCIA UGARTE MD Jun 11, 2017 16:45 Globulin 3.50 H Albumin/Globulin Ratio 1.05 ALYCIA UGARTE MD Jun 11, 2017 16:45
== END 2017-06-11 16:53 | disposition home or self-care (01) ==
LOC: L-D 13:17 → OBT 13:17
PROVIDERS: ATTEND Obstetrics & Gynecology
DX: O24.419 Gestational diabetes mellitus in pregnancy, unspecified control (principal); O16.3 Unspecified maternal hypertension, third trimester; Z3A.33 33 weeks gestation of pregnancy
CPT/HCPCS: 36415; 76818; 80053; 81001; 84560; 85025; Z7500; 81003; G0463

== ENCOUNTER 2017-06-13 11:20 | Inpatient (IN) | payer MEDICAID ==
[~2017-06-13] VITALS: Ht 142.2 cm; Wt 70.5 kg
[~2017-06-13 11:20] MED LIST changes: +LABE200T25 PO; +METF500T4 PO
[2017-06-13] MEDS: LACTATED RINGER'S 1,000 ML IV SCH ×3 (11:30→20:00)
[2017-06-13 12:10] LABS: BASOPHILS % 0.2 % (0.0-2.0); EOSINOPHILS # 0.1 10^3/ul (0.0-0.5); EOSINOPHILS % 0.7 % (0.0-7.0); HEMATOCRIT 34.9 % (37.0-47.0); HEMOGLOBIN 11.5 g/dl (12.0-16.0); LYMPHOCYTES # 1.6 10^3/ul (0.8-2.9); MEAN CORPUSCULAR HEMOGLOBIN 27.8 pg (29.0-33.0); MEAN CORPUSCULAR VOLUME 84.3 fl (82.0-101.0); MEAN PLATELET VOLUME 11.5 fl (7.4-10.4); MONOCYTE # 0.5 10^3/ul (0.3-0.9); MONOCYTES % 6.1 % (0.0-11.0); NEUTROPHIL # 6.1 10^3/ul (1.6-7.5); NEUTROPHILS % 73.4 % (39.0-77.0); PLATELET COUNT 324 10^3/UL (140-415); RED BLOOD COUNT 4.14 10^6/ul (4.20-5.40); RED CELL DISTRIBUTION WIDTH 14.5 % (11.5-14.5); WHITE BLOOD COUNT 8.3 10^3/ul (4.8-10.8)
[2017-06-13 12:12] LABS: ADD UMIC NO; UR ASCORBIC ACID NEGATIVE (NEGATIVE); UR BACTERIA MANY /HPF (NONE SEEN); UR BILIRUBIN (Dip) NEGATIVE (NEGATIVE); UR BLOOD (Dip) NEGATIVE (NEGATIVE); UR CLARITY SLIGHTLY CLOUDY (CLEAR); UR COLOR YELLOW (YELLOW); UR GLUCOSE (Dip) NEGATIVE (NEGATIVE); UR KETONES (Dip) NEGATIVE (NEGATIVE); UR LEUKOCYTE ESTERASE (Dip) NEGATIVE Leu/ul (NEGATIVE); UR NITRITE (Dip) NEGATIVE (NEGATIVE); UR RBC 2 /HPF (0-5); UR SPECIFIC GRAVITY (Dip) 1.003 (1.003-1.030); UR SQUAMOUS EPITHELIAL CELL MODERATE /HPF (FEW); UR TOTAL PROTEIN (Dip) NEGATIVE (NEGATIVE); UR UROBILINOGEN (Dip) NEGATIVE (NEGATIVE)
--- NOTE | 2017-06-13 12:18 | RADRPT ---
PROCEDURE: US OB. CLINICAL INDICATION: induced hypertension. Evaluate size. TECHNIQUE: Multiple sonographic images of the pelvis were obtained. The images were reviewed on a PACS workstation. COMPARISON: 06/11/2017 FINDINGS: There is a single viable intrauterine gestation. Cardiac activity is present with 173 beats per min [place]. Measurements were made in order to determine age. The results are as follows: BPD =8.1 cm HC =29.7 cm AC =29.4 cm FL =6.7 cm. Estimated gestational age of approximately 33 weeks and 2 days. The estimated date of delivery is 07/30/2017. The EFW = 2214 g . Limited by positioning. Visualized structures are normal. The placenta is anterior. There is no evidence for an abruption or placenta previa. IMPRESSION: Single viable intrauterine gestation of approximately 33 weeks and 2 days. EFW = 2214 g RPTAT:AAJJ Physician Milly Date Time Electronically viewed and signed by Physician Milly on 06/13/2017 12:18 /
[2017-06-13 12:27] VITALS: Ht 142.2 cm; Wt 70.5 kg
[2017-06-13 12:28] VITALS: BP 186/86; PULSE 68; RESP 18
[2017-06-13 12:29] LABS: ALBUMIN 3.4 g/dl (3.3-4.9); ALBUMIN/GLOBULIN RATIO 0.89; BILIRUBIN,INDIRECT 0.1 mg/dl (0-1.1); BILIRUBIN,TOTAL 0.1 mg/dl (0.2-1.3); CALCIUM 9.1 mg/dl (8.4-10.2); CREATININE 0.65 mg/dl (0.44-1.00); POTASSIUM 3.9 mmol/L (3.5-5.1); TOTAL PROTEIN 7.2 g/dl (6.1-8.1); URIC ACID 6.5 mg/dl (3.1-7.9)
--- NOTE | 2017-06-13 12:41 | RADRPT ---
PROCEDURE: US OB. CLINICAL INDICATION: induced hypertension TECHNIQUE: Transabdominal OB views of the pelvis are available for review. COMPARISON: OB ultrasound from the same day FINDINGS: Within the uterus, there is a single, live intrauterine . The presentation is cephalic. Th e heart rate is 148 beats per minute. The amniotic fluid index in four quadrants is 15.3 cm. The placenta is noted to be anterior and grade 2-3. There are no findings of abruption or previa. The biophysical profile score is 8/8. IMPRESSION: 1. Single live intrauterine with an amniotic fluid index of 15.3 cm. The biophysical pro file score is 8/8. 2. The placenta is anterior and grade 2-3. There are no findings of abruption or previa. RPTAT: QQ .Shavon Rodriguez MD, Date Time Electronically viewed and signed by .Shavon Rodriguez MD, on 06/13/2017 12:40 .F/
[2017-06-13 12:55] LABS: INR 0.82; PROTIME 11.3 Sec (12.2-14.2); PT RATIO 0.9
[2017-06-13 12:56] LABS: PARTIAL THROMBOPLASTIN TIME 25.1 Sec (25.0-35.0)
[2017-06-13] MEDS ORDERED: ACETAMINOPHEN 325 MG TAB PO PRN (13:00)
[2017-06-13] MEDS ORDERED: LABETALOL HCL 20MG INJ IV PRN ×2 (13:00→16:00)
[2017-06-13] MEDS ORDERED: MAGNESIUM SULFATE 4 GM/100 ML 100 ML IV ONE (13:00)
[2017-06-13] MEDS ORDERED: AL HYDROX/MG HYDROX/SIMETH 30 ML CUP PO PRN (13:00)
[2017-06-13 13:16] LABS: SCRET 0.65 mg/dl (0.44-1.00)
[2017-06-13] MEDS: MAGNESIUM SULFATE 20 GM/500 ML 500 ML IV SCH ×2 (13:45→22:37)
--- NOTE | 2017-06-13 15:07 | PERINOTE ---
Date/Time of Note Date/Time of Note DATE: 06/13/17 TIME: 15:00 Assessment/Recommendations Other Assessments Intrauterine at 34 weeks and 1 day of gestation Gestational diabetes, class A2 Hypertension, likely -induced as the blood pressures in early care were normal. The patient is being treated with labetalol and blood pressures on bedrest are in the normal range. Recommendations: I would continue this patient on her usual dose of labetalol, which I understand to be 200 mg twice daily. I would perform blood glucose checks fasting and 2 hours postprandial, and would institute treatment as needed. I would deliver this patient for persistent severe range blood pressures in the presence of the present dose of labetalol, or for other evidence of severe features. I would also deliver her for evidence of distress or maternal compromise. I would follow this patient closely, and if she is discharged I would perform twice weekly NSTs, weekly amniotic fluid indexes, and ultrasound evaluation of growth every 3 weeks. OB Subjective Free Text/Dictaton Patient is admitted with increased blood pressure, rule out preeclampsia. HD# 1 IUP @ 34W1D Complaints/Overnight events Patient with a history of elevated blood pressure treated with labetalol and gestational diabetes treated with metformin. She is a very unreliable historian and the doses of her medications are not known to her. Current Medications Current Medications Lactated Ringer's 1,000 ml @ 125 mls/hr Q8H IV Last administered on t 11:30; Admin Dose 125 MLS/HR; Start 06/13/17 at 12:52 Magnesium Sulfate (Magnesium Sulfate 20 Gm/500 ml) 500 ml @ 50 mls/hr Q10H IV Last administered on 06/13/17t 13:45; Admin Dose 50 MLS/HR; Start 06/13/17 at 12:52 Prenat Multivit/ [place]/Iron/Folic Ac () 1 tab DAILY PO ; Start at 09:00 Acetaminophen (Tylenol Tab) 650 mg Q4H PRN PO PAIN AND OR ELEVATED TEMP; Start 06/13/17 at 13:00 Al Hydrox/Mg Hydrox/Simethicone (Mag-Al Plus) 30 ml Q6H PRN PO GASTROINTESTINAL UPSET; Start 06/13/17 at 13:00 Labetalol HCl (Labetalol) 20 mg PRN PRN IV ELEVATED BP ; Start 06/13/17 at 16: 00 Labetalol HCl (Normodyne) 100 mg BID PO ; Start 06/13/17 at 21:00 Past Medical History Medical History: no pertinent history Surgical History: no surgical history Para: 0 : 1 Family History Significant Family History: no pertinent family hx Constitutional: no symptoms reported Eyes: no symptoms reported, denies blurred vision, denies vision change Respiratory: no symptoms reported Cardiovascular: no symptoms reported Gastrointestinal: no symptoms reported All Other Systems: Reviewed and Negative (Patient denies vaginal bleeding, loss of fluid, or uterine contractions. She reports active movement.) OB Admission Exam Physical Exam Vitals: Vital Signs Date Time Temp Pulse Resp B/P Pulse Ox O2 Delivery O2 Flow Rate FiO2 06/13/17 12:28 98.3 68 18 186/86 98 Room Air BP at the time of exam (3PM) was 132/70 Abdomen: WNL Heart Rate: 140's Accelerations: Accelerations Present Decelerations: No Decelerations Varibility: Moderate Contractions on Admission: None Last 72 hours Lab Results CBC & BMP 06/13/17 11:40 Liver Function Test 06/13/17 11:40 Alanine Aminotransferase (ALT/SGPT) 46 Albumin 3.4 Alkaline Phosphatase 239 H Aspartate Amino Transf (AST/SGOT) 38 Direct Bilirubin 0.00 Total Protein 7.2 Ultrasound Results EFW 2214 BPP 03/03 YOJANA 15.3 Ultrasound Comments: US of 06/13/17 Copies To: CC: ANGIE CARBAJAL MD, MARIE H MD Jun 13, 2017 15:07
[2017-06-13] MEDS: BETAMET NA PHOS/AC(6 MG/ML) 5ML INJ IM SCH (15:48)
--- NOTE | 2017-06-13 16:26 | HP ---
Date/Time of Note Date/Time of Note DATE: 06/13/17 TIME: 15:56 OB - History Hx of Present Free Text/Dictation June 13, 2017 Triage consult and history and physical This patient is a 27 years old primigravida with estimated date of confinement of July 24, 2017 which makes her 34.1 weeks today. She developed diabetes mellitus during this as well as elevated blood pressure for this reason she is being followed in high risk clinic with NST and biophysical profile. She was seen in triage 2 days ago.With the result of the 24 hours urine collection for protein was 440 mg .This test was repeated repeated and the result was 720 mg/dL. She is taking labetalol 100 mg twice a day as well as metformin 500 mg twice a day according to the patient. However she is not a very good reliable historian. . Today her blood pressure is 186/86 and then on repeat exam was 171/83 165/83 Physical examination :she is a well-developed well-nourished patient who speaks only [place]. Her ear nose throat appears to be normal no edema no neck vein distention no thyroidomegaly. Chest is clear to auscultation or percussion no rales. Heart normal sinus rhythm no murmur. Breasts are soft and free of masses. Abdomen is soft she does not have very frequent contractions heart tone is normal with fairly good variability and occasional accelerations. Extremity she does have about 1+ pitting edema knee-jerk reflexes about 2-3+. We did not a pelvic exam . Abnormal Ultrasound Findings: Laboratory Tests Test 06/13/17 11:25 06/13/17 11:40 06/13/17 15:29 Urine Random Creatinine 34.39mg/dl Urine Collection Duration 24hrs Urine Total Volume 24 Hours 3000ml/24hrs Urine Creatinine Timed 24hrs Creatinine Clearance 110.2mls/min Urine Total Volume (Protein) 3000mls Urine Total Protein 24 Hour mg/24hrs White Blood Count 8.310^3/ul Red Blood Count 4.1410^6/ul Hemoglobin 11.5g/dl Hematocrit 34.9% Mean Corpuscular Volume 84.3fl Mean Corpuscular Hemoglobin 27.8pg Mean Corpuscular Hemoglobin Concent 33.0g/dl Red Cell Distribution Width 14.5% Platelet Count 09720^3/UL Mean Platelet Volume 11.5fl Neutrophils % 73.4% Lymphocytes % 19.0% Monocytes % 6.1% Eosinophils % 0.7% Basophils % 0.2% Nucleated Red Blood Cells % 0.0/100WBC Neutrophils # 6.110^3/ul Lymphocytes # 1.610^3/ul Monocytes # 0.510^3/ul Eosinophils # 0.110^3/ul Basophils # 0.010^3/ul Nucleated Red Blood Cells # 0.010^3/ul Prothrombin Time 11.3Sec Prothrombin Time Ratio 0.9 INR International Normalized Ratio 0.82 Activated Partial Thromboplast Time 25.1Sec Fibrinogen 574.0mg/dl Urine Color YELLOW Urine Clarity SLIGHTLY CLOUDY Urine pH 7.0 Urine Specific [place] 1.003 Urine Ketones NEGATIVEmg/dL Urine Nitrite NEGATIVEmg/dL Urine Bilirubin NEGATIVEmg/dL Urine Urobilinogen NEGATIVEmg/dL Urine Leukocyte Esterase NEGATIVELeu/ul Urine Microscopic RBC 2/HPF Urine Microscopic WBC 6/HPF Urine Squamous Epithelial Cells MODERATE/HPF Urine Bacteria MANY/HPF Urine Hemoglobin NEGATIVEmg/dL Urine Glucose NEGATIVEmg/dL Urine Total Protein NEGATIVEmg/dl Sodium Level 137mmol/L Potassium Level 3.9mmol/L Chloride Level 108mmol/L Carbon Dioxide Level 20mmol/L Anion Gap 13 Blood Urea Nitrogen 9mg/dl Creatinine 0.65mg/dl Glucose Level 131mg/dl Uric Acid 6.5mg/dl Calcium Level 9.1mg/dl Total Bilirubin 0.1mg/dl Direct Bilirubin 0.00mg/dl Indirect Bilirubin 0.1mg/dl Aspartate Amino Transf (AST/SGOT) 38IU/L Alanine Aminotransferase (ALT/SGPT) 46IU/L Alkaline Phosphatase 239IU/L Total Protein 7.2g/dl Albumin 3.4g/dl Globulin 3.80g/dl Albumin/Globulin Ratio 0.89 Bedside Glucose 102mg/dL Current Medications Medications (Trade) Dose Ordered Sig/Annette Route PRN Reason Start Time Stop Time Status Last Admin Dose Admin Lactated Ringer's 1,000 ml @ 125 mls/hr Q8H IV 06/13/17 12:52 06/13/17 11:30 Magnesium Sulfate 100 ml @ 200 mls/hr ONCE ONCE IV 06/13/17 13:00 06/13/17 13:29 DC 06/13/17 13:12 Magnesium Sulfate (Magnesium Sulfate 20 Gm/500 ml) 500 ml @ 50 mls/hr Q10H IV 06/13/17 12:52 06/13/17 13:45 Prenat Multivit/ [facility]/Iron/Folic Ac () 1 tab DAILY PO 06/14/17 09:00 Acetaminophen (Tylenol Tab) 650 mg Q4H PRN PO PAIN AND OR ELEVATED TEMP 06/13/17 13:00 Al Hydrox/Mg Hydrox/Simethicone (Mag-Al Plus) 30 ml Q6H PRN PO GASTROINTESTINAL UPSET 06/13/17 13:00 Labetalol HCl (Labetalol) 20 mg Q10MIN PRN IV ELEVATED BP 06/13/17 13:00 06/13/17 14:21 DC 06/13/17 13:07 Labetalol HCl (Labetalol) 20 mg PRN PRN IV ELEVATED BP 06/13/17 16:00 Labetalol HCl (Normodyne) 100 mg BID PO 06/13/17 21:00 Metformin HCl (Glucophage Xr) 500 mg WITH BREAKFAST DINNE PO 06/13/17 17:35 Betamethasone Acet/Betameth SodPhos (Celestone Soluspan) 12 mg Q24H IM 06/13/17 16:00 06/14/17 16:01 06/13/17 15:48 Other Concerns: Her urinalysis basically was within normal limits, PT INR and PTT were within normal range. Fibrinogen level was 574 and then 24 hour urine protein that she collected the protein was reported 720 mg/dL however the creatinine clearance was 110. On my chemical lab test glucose was 131 electrolytes and liver function tests were within normal limits CBC she had her only slight anemia with hemoglobin of 11.5 her platelet was 324,000. Ultrasound study report was a single viable intrauterine gestation with heart tone 173 bpm estimated weight was 2214 g her amniotic fluid index was reported 15.2 cm the biophysical profile of 03/03. Plan as I mentioned she has been seen by perinatologist who agrees with all of these measures . ... Past Family/Social History * Past Medical, Surgical, Family and Obstetric Histories reviewed from chart. OB Admission Exam Vital Signs Vital Signs Vital Signs Date Time Temp Pulse Resp B/P Pulse Ox O2 Delivery O2 Flow Rate FiO2 06/13/17 12:28 98.3 68 18 186/86 98 Room Air Last 72 hourBlood Glucose Bedside Glucose - 72 Hours Test 06/13/17 15:29 Bedside Glucose 102mg/dL (70-220) Last 72 hours Lab Results CBC & BMP 06/13/17 11:40 Liver Function Test 06/13/17 11:40 Alanine Aminotransferase (ALT/SGPT) 46 Albumin 3.4 Alkaline Phosphatase 239 H Aspartate Amino Transf (AST/SGOT) 38 Direct Bilirubin 0.00 Total Protein 7.2 ALYCIA UGARTE MD Jun 13, 2017 16:13
[2017-06-13] MEDS: metFORMIN (XR) 500 MG TAB PO SCH (17:51)
[2017-06-13] MEDS ORDERED: metFORMIN 500 MG TAB PO SCH (21:00)
[2017-06-13] MEDS ORDERED: LABETALOL 200 MG TAB PO SCH (21:00)
[2017-06-13] MEDS: LABETALOL 100 MG TAB PO SCH (22:33)
[2017-06-14] MEDS ORDERED: PRENATAL VITAMIN PO SCH (09:00)
[2017-06-14] MEDS: PRENATAL VITAMIN PO SCH (09:13)
[2017-06-14] MEDS: metFORMIN (XR) 500 MG TAB PO SCH ×2 (09:14→17:19)
[2017-06-14] MEDS: LABETALOL 100 MG TAB PO SCH ×2 (09:14→21:12)
[2017-06-14] MEDS ORDERED: ONDANSETRON 4 MG INJ IV PRN (09:30)
--- NOTE | 2017-06-14 11:48 | QN ---
Documentation Comment Vital signs are stable her blood pressures running mid 130s over mid 80s, denies headache epigastric pain or blurry vision,, currently she is on metformin 500 mg twice daily breakfast and dinner, labetalol 100 mg twice daily , no longer on magnesium sulfate she has no neurological symptoms this time, we will continue present expecting management. ANGIE CARBAJAL MD Jun 14, 2017 11:48
[2017-06-14] MEDS: BETAMET NA PHOS/AC(6 MG/ML) 5ML INJ IM SCH (15:59)
[2017-06-14] MEDS: LACTATED RINGER'S 1,000 ML IV SCH ×2 (17:25→23:48)
[2017-06-15] MEDS: LACTATED RINGER'S 1,000 ML IV SCH (03:26)
[2017-06-15] MEDS: PRENATAL VITAMIN PO SCH (09:17)
[2017-06-15] MEDS: metFORMIN (XR) 500 MG TAB PO SCH (09:17)
[2017-06-15] MEDS: LABETALOL 100 MG TAB PO SCH (09:18)
--- NOTE | 2017-06-15 12:16 | NSTRPT ---
NST Information Datetime Report Generated by CPN: 06/15/2017 12:15 Datetime: 06/11/2017 10:25 NST Information EGA: 33.6 Test Number: 2 Time on Monitor: 06/11/2017 11:45 Time off Monitor: 06/11/2017 12:32 NST Duration (Min): 47 Reason for NST: Diabetes Mellitus Reason for NST Other: A2 Test and Monitor Explained: Monitor Explained; Test Explained; Verbalized Understanding Pulse: 56 Resp: 18 SBP: 164 DBP: 83 Test Evaluation NST Interventions: Reposition Patient Patient States Movement: Present Contraction Frequency: NONE FHR Baseline : 140 Variability: Minimal - <=5bpm Accelerations: 15X15 Decelerations: None FHR Category: Category II NST Results: Non-Reactive Comments: Pt to U/S, YOJANA 11.1cm, cephalic EFW 2132gms (32%), AC 31% strip reviewed by Dr. Martinez, pt to OB Triage for extended monitoring per MD orders. Electronically Signed By E-Signature: with User ID: [id number] Datetime: 06/08/2017 10:35 NST Information EGA: 33.3 Datetime: 06/08/2017 10:11 NST Duration (Min): 70
--- NOTE | 2017-06-15 14:21 | PDOCDIS ---
Discharge Instructions CONDITION Patient Condition: Good HOME CARE INSTRUCTIONS: Diet Instructions: 2000-calorie GDM ACTIVITY: Activity Restrictions: No Restrictions Bathing Restrictions: Shower FOLLOW UP/APPOINTMENTS Follow-up Plan Patient discharged home with follow-up instructions we made an appointment with perinatology clinic for her for June 17, continue taking her metformin 500 mg twice a day also labetalol 100 mg twice a day, recommended bedrest, return to hospital for following symptoms, headache, blurry vision, epigastric pain, otherwise keep the appointment with perinatology for Thursday. ANGIE CARBAJAL MD Jun 15, 2017 14:21
--- NOTE | 2017-06-15 16:09 | DS ---
Date/Time of Note Date/Time of Note DATE: 06/15/17 TIME: 15:52 Discharge Summary Admission/Discharge Info Admit Date/Time Jun 13, 2017 at 13:00 Discharge Date/Time 2016 at 1552 Discharge Diagnosis 34 weeks plus complicated with gestational diabetes, - induced hypertension Patient Condition: Good Consults Patient,s blood pressure has been running during the last 24 hours in the range of 140s over 80s ,she has seen by the perinatologist, recommended discharged home today to be followed as outpatient, she has an appointment on June 17) @ perinatology clinic per perinatologist recommendation, she is discharged home advised to continue taking metformin 500 mg at breakfast and dinner, labetalol 100 mg twice daily, and keep the appointment with perinatology clinic on Thursday, return to hospital if experiencing headache blurry vision or epigastric pain. Procedures Workup and treatment for gestational diabetes, -induced hypertension Hx of Present Illness 34 weeks 3 days complicated with gestational diabetes - induced hypertension Hospital Course Satisfactory , denies headache blurry vision epigastric pain, her blood pressure in the antepartum unit last 24 hours ranging 130s 140s over 80s one occasion 150/80, perinatologist recommended may be discharged we made an appointment with perinatology clinic on June 17. Home Meds Reported Medications Metformin Hcl* (Metformin Hcl*) 500 Mg Tablet, 500 MG PO WITH MEALS BEDTIME, # 90 TAB 06/11/17 Labetalol Hcl* (Labetalol Hcl*) 200 Mg Tablet, 200 MG PO BID, TAB 06/11/17 Vit W-Ca,Fe,FA(<1 mg) ( Vitamins) 1 Each Tablet, 1 EACH PO, TAB 06/08/17 Follow-up Plan Patient discharged home with follow-up instructions we made an appointment with perinatology clinic for her for June 17, continue taking her metformin 500 mg twice a day also labetalol 100 mg twice a day, recommended bedrest, return to hospital for following symptoms, headache, blurry vision, epigastric pain, otherwise keep the appointment with perinatology for Thursday. Primary Care Provider Care Physician No Primary Time spent on discharge: < 30 minutes Pending Labs Laboratory Tests Test 06/14/17 19:59 06/15/17 09:15 06/15/17 11:05 06/15/17 15:48 Bedside Glucose 178mg/dL (70-220) 110mg/dL (70-220) 127mg/dL (70-220) 118mg/dL (70-220) ANGIE CARBAJAL MD Jun 15, 2017 16:02
== END 2017-06-15 17:00 | disposition home or self-care (01) | DRG 781 ==
LOC: OBT 11:20 → L-D 11:23 → OBT 13:00 → UNDOADMIN 13:00 → OBG 13:00 → L-D 15:20 → OBG 19:39
PROVIDERS: ATTEND Obstetrics & Gynecology
DX: O13.3 Gestational [pregnancy-induced] hypertension without significant proteinuria, third trimester (principal); O24.410 Gestational diabetes mellitus in pregnancy, diet controlled; Z3A.34 34 weeks gestation of pregnancy
CPT/HCPCS: 36415; 76815; 76818; 80053; 81001; 81003; 82575; 82962; 83735; 84156; 84560; 85025; 85384; 85610; 85730; 96360; 96361; G0463; J0702; J2405; J3475; J7120

== ENCOUNTER 2017-06-20 11:16 | Outpatient (CLI) | payer MEDICAID ==
--- NOTE | 2017-06-20 12:25 | RADRPT ---
PROCEDURE: US biophysical profile. CLINICAL INDICATION: Hypertension and diabetes. TECHNIQUE: Multiple sonographic images of the uterus were obtained. The images were revi ewed on a PACS workstation. COMPARISON: 06/13/2017. FINDINGS: There is a single live intrauterine gestation. heart rate is 150 beats per minute. The position is cephalic. The placenta is anterior grade II with no abruption or previa. The YOJANA is 13.8 cm. (Normal = 5-20 cm.) Breathing Movement: 2 Gross Body Movement: 2 Tone: 2 Qualitative Amniotic Fluid Volume: 2 TOTAL: 8 IMPRESSION: 1. The biophysical score is 8/8. RPTAT: QQ .Brooks Sharp MD, MD Date Time Electronically viewed and signed by .Brooks Sharp MD, on 06/20/2017 12:24 .R/
[2017-06-20 13:23] LABS: BASOPHILS % 0.4 % (0.0-2.0); EOSINOPHILS # 0.1 10^3/ul (0.0-0.5); EOSINOPHILS % 1.1 % (0.0-7.0); HEMATOCRIT 38.9 % (37.0-47.0); LYMPHOCYTES # 1.5 10^3/ul (0.8-2.9); LYMPHOCYTES % 17.8 % (15.0-51.0); MEAN CORPUSCULAR HEMOGLOBIN 28.3 pg (29.0-33.0); MEAN CORPUSCULAR HGB CONC 33.4 g/dl (32.0-37.0); MEAN CORPUSCULAR VOLUME 84.6 fl (82.0-101.0); MEAN PLATELET VOLUME 11.2 fl (7.4-10.4); MONOCYTE # 0.5 10^3/ul (0.3-0.9); MONOCYTES % 5.7 % (0.0-11.0); NEUTROPHIL # 6.4 10^3/ul (1.6-7.5); NEUTROPHILS % 74.5 % (39.0-77.0); PLATELET COUNT 362 10^3/UL (140-415); RED CELL DISTRIBUTION WIDTH 14.5 % (11.5-14.5); WHITE BLOOD COUNT 8.5 10^3/ul (4.8-10.8)
[2017-06-20 13:39] LABS: ADD UMIC YES; UR ASCORBIC ACID NEGATIVE (NEGATIVE); UR BACTERIA MODERATE /HPF (NONE SEEN); UR BILIRUBIN (Dip) NEGATIVE (NEGATIVE); UR BLOOD (Dip) NEGATIVE (NEGATIVE); UR CLARITY CLEAR (CLEAR); UR COLOR YELLOW (YELLOW); UR GLUCOSE (Dip) NEGATIVE (NEGATIVE); UR KETONES (Dip) NEGATIVE (NEGATIVE); UR LEUKOCYTE ESTERASE (Dip) NEGATIVE Leu/ul (NEGATIVE); UR NITRITE (Dip) NEGATIVE (NEGATIVE); UR RBC 1 /HPF (0-5); UR SPECIFIC GRAVITY (Dip) 1.011 (1.003-1.030); UR SQUAMOUS EPITHELIAL CELL MANY /HPF (FEW); UR TOTAL PROTEIN (Dip) 2+ mg/dl (NEGATIVE); UR UROBILINOGEN (Dip) NEGATIVE (NEGATIVE)
[2017-06-20 13:43] LABS: ALBUMIN 3.7 g/dl (3.3-4.9); ALBUMIN/GLOBULIN RATIO 0.97; BILIRUBIN,INDIRECT 0.1 mg/dl (0-1.1); BILIRUBIN,TOTAL 0.1 mg/dl (0.2-1.3); CALCIUM 9.6 mg/dl (8.4-10.2); CREATININE 0.71 mg/dl (0.44-1.00); POTASSIUM 4.5 mmol/L (3.5-5.1); TOTAL PROTEIN 7.5 g/dl (6.1-8.1); URIC ACID 7.1 mg/dl (3.1-7.9)
[2017-06-20 13:44] LABS: PARTIAL THROMBOPLASTIN TIME 25.8 Sec (25.0-35.0)
[2017-06-20 13:55] LABS: INR 0.8; PROTIME 11.1 Sec (12.2-14.2); PT RATIO 0.9
--- NOTE | 2017-06-20 14:12 | TRIAGE ---
OB Triage Datetime Report Generated by CPN: 06/20/2017 14:11 Datetime: 06/20/2017 13:32 Vaginal Exam Dilatation (cms): 0.0 Exam By: KHEMANI Datetime: 06/20/2017 13:00 Stage of : OB Triage Maternal Assessment Level of Consciousness: Fully Conscious Labor Evaluation Frequency: 3-10 Monitor Mode: External Duration (sec)2399: 70-90 Quality: Mild Resting Tone [place]: Relaxed Heart Rate FHR Baseline Rate: 140 Monitor Mode: External US Variability: Moderate 6-25 bpm Accelerations: 15X15 Decelerations: None Category: Category I Pain Assessment Pain Scale: 0 Pain Goal: 3 Membrane Status: Intact Vaginal Bleeding: None Datetime: 06/20/2017 12:57 Time of Arrival: 06/20/2017 11:05 EGA: 35.1 Arrived By: Ambulatory Arrived From: Home Chief Complaint: pt here for NST/BPP FOR HBP/GDM Movement: Present Contractions: Denies/Absent Rupture of Membranes: Denies Vaginal Bleeding: None Vaginal Discharge: Denies Recent Sexual Intercouse: Denies Abdominal Trauma: Not Applicable Patient Complaints: None Time Provider Notified: 06/20/2017 11:30 Provider Notified: UAJE Initial Plan: NST/BPP/SVE/PIH PANEL/ Datetime: 06/20/2017 11:41 Monitor Mode: External Monitor Mode: External US Datetime: 06/15/2017 16:44 Labor Evaluation Frequency: 0 Monitor Mode: External Resting Tone [place]: Relaxed Heart Rate FHR Baseline Rate: 140 Monitor Mode: External US FHR Baseline Changes: No Baseline Change Variability: Moderate 6-25 bpm Accelerations: 15X15 Decelerations: None Category: Category I Datetime: 06/15/2017 16:13 Comments: back on monitor Datetime: 06/15/2017 15:13 Bedside Blood Glucose: 118 Datetime: 06/15/2017 14:30 Maternal Assessment Level of Consciousness: Fully Conscious Headache: Denies Blurred Vision: No Nausea/Vomiting: Denies RUQ Epigastric Pain: Denies Facial Edema: None Datetime: 06/15/2017 11:05 Labor Evaluation Frequency: 0 Monitor Mode: External Resting Tone [place]: Relaxed Heart Rate FHR Baseline Rate: 140 Monitor Mode: External US FHR Baseline Changes: No Baseline Change Variability: Moderate 6-25 bpm Accelerations: 15X15 Decelerations: None Category: Category I Datetime: 06/15/2017 11:04 Labor Evaluation Frequency: 0 Monitor Mode: External Resting Tone [place]: Relaxed Heart Rate FHR Baseline Rate: 140 Monitor Mode: External US FHR Baseline Changes: No Baseline Change Variability: Moderate 6-25 bpm Accelerations: 15X15 Decelerations: None Category: Category I Datetime: 06/15/2017 11:00 Bedside Blood Glucose: 127 Datetime: 06/15/2017 09:28 Assessment Type: Ongoing Assessment Maternal Assessment Level of Consciousness: Fully Conscious DTR's/Clonus: DTRs 2+; No Clonus Headache: Denies Blurred Vision: No Respiratory Effort: Unlabored; Regular Rhythm; Equal Expansion Breath Sounds, Left: Clear and Equal Breath Sounds, Right: Clear and Equal Nausea/Vomiting: Denies RUQ Epigastric Pain: Denies Facial Edema: None Fall Risk Assessment History of Falling: (0) No Secondary Diagnosis: (0) No Ambulatory Aid: (0) Bedrest/Nurse Assist IV Therapy: (20) Yes Gait: (0) Normal/Bedrest/Immobile Mental Status: (0) Oriented to Own Ability Fall Score: 20 Fall Risk Score Definition: No Risk: No action required Datetime: 06/15/2017 09:24 Bedside Blood Glucose: 110 Datetime: 06/15/2017 09:21 Maternal Assessment Level of Consciousness: Fully Conscious DTR's/Clonus: DTRs 3+ Headache: Denies Blurred Vision: No Respiratory Effort: Unlabored Breath Sounds, Left: Clear and Equal Breath Sounds, Right: Clear and Equal Nausea/Vomiting: Denies RUQ Epigastric Pain: Denies Facial Edema: None Pain Presence: None/Denies Datetime: 06/15/2017 07:18 Labor Evaluation Frequency: irritability Monitor Mode: External Quality: Mild Resting Tone [place]: Relaxed Heart Rate FHR Baseline Rate: 135 Monitor Mode: External US FHR Baseline Changes: No Baseline Change Variability: Moderate 6-25 bpm Accelerations: 15X15 Decelerations: None Category: Category I Datetime: 06/15/2017 07:00 Labor Evaluation Frequency: 0 Monitor Mode: External Heart Rate FHR Baseline Rate: 135 Monitor Mode: External US FHR Baseline Changes: No Baseline Change Variability: Moderate 6-25 bpm Accelerations: 15X15 Decelerations: None Category: Category I Datetime: 06/15/2017 06:00 Labor Evaluation Frequency: 0 Monitor Mode: External Heart Rate FHR Baseline Rate: 135 Monitor Mode: External US FHR Baseline Changes: No Baseline Change Variability: Moderate 6-25 bpm Accelerations: 15X15 Decelerations: None Category: Category I Datetime: 06/15/2017 05:00 Labor Evaluation Frequency: 0 Monitor Mode: External Heart Rate FHR Baseline Rate: 135 Monitor Mode: External US FHR Baseline Changes: No Baseline Change Variability: Moderate 6-25 bpm Accelerations: 15X15 Decelerations: None Category: Category I Datetime: 06/15/2017 04:31 Temperature Route: Oral Pain Assessment Pain Scale: 0 Datetime: 06/15/2017 04:00 Labor Evaluation Frequency: 0 Monitor Mode: External Heart Rate FHR Baseline Rate: 135 Monitor Mode: External US FHR Baseline Changes: No Baseline Change Variability: Moderate 6-25 bpm Accelerations: 15X15 Decelerations: None Category: Category I Datetime: 06/15/2017 03:00 Labor Evaluation Frequency: 0 Monitor Mode: External Heart Rate FHR Baseline Rate: 135 Monitor Mode: External US FHR Baseline Changes: No Baseline Change Variability: Moderate 6-25 bpm Accelerations: 15X15 Decelerations: None Category: Category I Datetime: 06/15/2017 02:00 Labor Evaluation Frequency: 0 Monitor Mode: External Heart Rate FHR Baseline Rate: 140 Monitor Mode: External US FHR Baseline Changes: No Baseline Change Variability: Moderate 6-25 bpm Accelerations: 15X15 Decelerations: None Category: Category I Datetime: 06/15/2017 01:00 Labor Evaluation Frequency: 0 Monitor Mode: External Heart Rate FHR Baseline Rate: 140 Monitor Mode: External US FHR Baseline Changes: No Baseline Change Variability: Moderate 6-25 bpm Accelerations: 15X15 Decelerations: None Category: Category I Datetime: 06/15/2017 00:00 Labor Evaluation Frequency: 0 Monitor Mode: External Heart Rate FHR Baseline Rate: 140 Monitor Mode: External US FHR Baseline Changes: No Baseline Change Variability: Moderate 6-25 bpm Accelerations: 15X15 Decelerations: None Category: Category I Datetime: 06/14/2017 23:00 Labor Evaluation Frequency: 0 Monitor Mode: External Heart Rate FHR Baseline Rate: 135 Monitor Mode: External US FHR Baseline Changes: No Baseline Change Variability: Moderate 6-25 bpm Accelerations: 15X15 Decelerations: None Category: Category I Datetime: 06/14/2017 22:00 Labor Evaluation Frequency: 0 Monitor Mode: External Heart Rate FHR Baseline Rate: 140 Monitor Mode: External US FHR Baseline Changes: No Baseline Change Variability: Moderate 6-25 bpm Accelerations: 15X15 Decelerations: None Category: Category I Datetime: 06/14/2017 21:00 Labor Evaluation Frequency: 0 Monitor Mode: External Heart Rate FHR Baseline Rate: 140 Monitor Mode: External US FHR Baseline Changes: No Baseline Change Variability: Moderate 6-25 bpm Accelerations: 15X15 Decelerations: None Category: Category I Datetime: 06/14/2017 20:00 Labor Evaluation Frequency: 0 Monitor Mode: External Heart Rate FHR Baseline Rate: 145 Monitor Mode: External US FHR Baseline Changes: No Baseline Change Variability: Moderate 6-25 bpm Accelerations: 15X15 Decelerations: None Category: Category I Datetime: 06/14/2017 19:59 Bedside Blood Glucose: 178 Datetime: 06/14/2017 19:58 Temperature Route: Oral Pain Assessment Pain Scale: 0 Datetime: 06/14/2017 19:20 Assessment Type: Ongoing Assessment Maternal Assessment Level of Consciousness: Fully Conscious DTR's/Clonus: DTRs 2+; No Clonus Headache: Denies Blurred Vision: No Respiratory Effort: Unlabored; Regular Rhythm; Equal Expansion Breath Sounds, Left: Clear and Equal Breath Sounds, Right: Clear and Equal Nausea/Vomiting: Denies RUQ Epigastric Pain: Denies Lower Extremities Edema: None Upper Extremities Edema: None Facial Edema: None Fall Risk Assessment History of Falling: (0) No Secondary Diagnosis: (0) No Ambulatory Aid: (0) Bedrest/Nurse Assist IV Therapy: (20) Yes Gait: (0) Normal/Bedrest/Immobile Mental Status: (0) Oriented to Own Ability Fall Score: 20 Fall Risk Score Definition: No Risk: No action required Datetime: 06/14/2017 18:45 Maternal Assessment Level of Consciousness: Fully Conscious Headache: Denies Blurred Vision: No Nausea/Vomiting: Denies RUQ Epigastric Pain: Denies Datetime: 06/14/2017 17:13 Labor Evaluation Frequency: 0 Monitor Mode: External Resting Tone [place]: Relaxed Heart Rate FHR Baseline Rate: 140 Monitor Mode: External US FHR Baseline Changes: No Baseline Change Variability: Moderate 6-25 bpm Accelerations: 15X15 Decelerations: None Category: Category I Datetime: 06/14/2017 16:18 Labor Evaluation Frequency: irritability Monitor Mode: External Quality: Mild Resting Tone [place]: Relaxed Heart Rate FHR Baseline Rate: 140 Monitor Mode: External US FHR Baseline Changes: No Baseline Change Variability: Moderate 6-25 bpm Accelerations: 15X15 Decelerations: None Category: Category I Datetime: 06/14/2017 16:16 Maternal Assessment Level of Consciousness: Fully Conscious DTR's/Clonus: DTRs 3+ Headache: Denies Blurred Vision: No Nausea/Vomiting: Denies RUQ Epigastric Pain: Denies Datetime: 06/14/2017 15:17 Bedside Blood Glucose: 112 Datetime: 06/14/2017 14:56 Labor Evaluation Frequency: 0 Monitor Mode: External Resting Tone [place]: Relaxed Heart Rate FHR Baseline Rate: 140 Monitor Mode: External US FHR Baseline Changes: No Baseline Change Variability: Moderate 6-25 bpm Accelerations: 15X15 Decelerations: None Category: Category I Datetime: 06/14/2017 13:43 Labor Evaluation Frequency: 0 Monitor Mode: External Resting Tone [place]: Relaxed Heart Rate FHR Baseline Rate: 140 Monitor Mode: External US FHR Baseline Changes: No Baseline Change Variability: Moderate 6-25 bpm Accelerations: 15X15 Decelerations: None Category: Category I Pain Presence: None/Denies Datetime: 06/14/2017 13:36 Maternal Assessment Level of Consciousness: Fully Conscious Headache: Denies Blurred Vision: No Nausea/Vomiting: Denies RUQ Epigastric Pain: Denies Datetime: 06/14/2017 11:20 Bedside Blood Glucose: 100 Datetime: 06/14/2017 10:08 Labor Evaluation Frequency: occasional Monitor Mode: External Quality: Mild Resting Tone [place]: Relaxed Heart Rate FHR Baseline Rate: 130 Monitor Mode: External US FHR Baseline Changes: No Baseline Change Variability: Moderate 6-25 bpm Accelerations: 10X10 Decelerations: None Category: Category I Datetime: 06/14/2017 09:06 Bedside Blood Glucose: 102 Datetime: 06/14/2017 09:00 Assessment Type: Ongoing Assessment Maternal Assessment Level of Consciousness: Fully Conscious DTR's/Clonus: DTRs 2+; No Clonus Headache: Denies Blurred Vision: No Respiratory Effort: Unlabored; Regular Rhythm; Equal Expansion Breath Sounds, Left: Clear and Equal Breath Sounds, Right: Clear and Equal Nausea/Vomiting: Denies RUQ Epigastric Pain: Denies Facial Edema: None Fall Risk Assessment History of Falling: (0) No Secondary Diagnosis: (0) No Ambulatory Aid: (0) Bedrest/Nurse Assist Gait: (0) Normal/Bedrest/Immobile Mental Status: (0) Oriented to Own Ability Datetime: 06/14/2017 08:49 Maternal Assessment Level of Consciousness: Fully Conscious DTR's/Clonus: DTRs 3+ Headache: Denies Blurred Vision: Yes Breath Sounds, Left: Clear and Equal Breath Sounds, Right: Clear and Equal Nausea/Vomiting: Present RUQ Epigastric Pain: Denies Facial Edema: 1+ Datetime: 06/14/2017 07:36 Labor Evaluation Frequency: 0 Monitor Mode: External Resting Tone [place]: Relaxed Heart Rate FHR Baseline Rate: 120 Monitor Mode: External US FHR Baseline Changes: No Baseline Change Variability: Moderate 6-25 bpm Accelerations: 10X10 Decelerations: None Category: Category I Datetime: 06/14/2017 06:59 Labor Evaluation Frequency: 0 Monitor Mode: External Heart Rate FHR Baseline Rate: 130 Monitor Mode: External US FHR Baseline Changes: No Baseline Change Variability: Moderate 6-25 bpm Accelerations: 15X15 Decelerations: None Category: Category I Datetime: 06/14/2017 06:00 Labor Evaluation Frequency: 0 Monitor Mode: External Heart Rate FHR Baseline Rate: 130 Monitor Mode: External US FHR Baseline Changes: No Baseline Change Variability: Moderate 6-25 bpm Accelerations: 15X15 Category: Category I Datetime: 06/14/2017 05:00 Labor Evaluation Frequency: 0 Monitor Mode: External Heart Rate FHR Baseline Rate: 130 Monitor Mode: External US FHR Baseline Changes: No Baseline Change Variability: Moderate 6-25 bpm Accelerations: 15X15 Decelerations: None Category: Category I Datetime: 06/14/2017 04:00 Labor Evaluation Frequency: 0 Monitor Mode: External Heart Rate FHR Baseline Rate: 130 Monitor Mode: External US FHR Baseline Changes: No Baseline Change Variability: Moderate 6-25 bpm Accelerations: None Decelerations: None Category: Category I Datetime: 06/14/2017 03:40 Temperature Route: Oral Pain Assessment Pain Scale: 0 Datetime: 06/14/2017 03:00 Labor Evaluation Frequency: 0 Monitor Mode: External Heart Rate FHR Baseline Rate: 125 Monitor Mode: External US FHR Baseline Changes: No Baseline Change Variability: Moderate 6-25 bpm Accelerations: 10X10 Decelerations: None Category: Category I Datetime: 06/14/2017 02:00 Labor Evaluation Frequency: 0 Monitor Mode: External Heart Rate FHR Baseline Rate: 130 Monitor Mode: External US FHR Baseline Changes: No Baseline Change Variability: Moderate 6-25 bpm (Annotations: MINIMAL AT TIMES.) Accelerations: 15X15 Decelerations: None Category: Category I Datetime: 06/14/2017 01:00 Labor Evaluation Frequency: 0 Monitor Mode: External Heart Rate FHR Baseline Rate: 130 Monitor Mode: External US FHR Baseline Changes: No Baseline Change Variability: Moderate 6-25 bpm (Annotations: MINIMAL AT TIMES. ) Accelerations: 15X15 Decelerations: None Category: Category I Datetime: 06/14/2017 00:00 Labor Evaluation Frequency: 0 Monitor Mode: External Heart Rate FHR Baseline Rate: 130 Monitor Mode: External US FHR Baseline Changes: No Baseline Change Variability: Moderate 6-25 bpm Accelerations: 10X10 Decelerations: None Category: Category I Datetime: 06/13/2017 23:51 Maternal Assessment Level of Consciousness: Fully Conscious DTR's/Clonus: DTRs 2+ Headache: Denies Breath Sounds, Left: Clear and Equal Breath Sounds, Right: Clear and Equal Nausea/Vomiting: Denies Temperature Route: Oral Pain Assessment Pain Scale: 0 Datetime: 06/13/2017 23:00 Labor Evaluation Frequency: 0 Monitor Mode: External Heart Rate FHR Baseline Rate: 130 Monitor Mode: External US FHR Baseline Changes: No Baseline Change Variability: Moderate 6-25 bpm Accelerations: 15X15 Decelerations: None Category: Category I Datetime: 06/13/2017 22:29 Maternal Assessment Level of Consciousness: Fully Conscious DTR's/Clonus: DTRs 2+ Datetime: 06/13/2017 22:00 Labor Evaluation Frequency: 0 Monitor Mode: External Heart Rate FHR Baseline Rate: 135 Monitor Mode: External US FHR Baseline Changes: No Baseline Change Variability: Moderate 6-25 bpm Accelerations: 15X15 Decelerations: None Category: Category I Datetime: 06/13/2017 21:00 Stage of : Antepartum Assessment Type: Admission Assessment Maternal Assessment Level of Consciousness: Fully Conscious DTR's/Clonus: DTRs 2+; No Clonus Headache: Denies Blurred Vision: No Respiratory Effort: Unlabored; Regular Rhythm; Equal Expansion Breath Sounds, Left: Clear and Equal Breath Sounds, Right: Clear and Equal Nausea/Vomiting: Denies RUQ Epigastric Pain: Denies Lower Extremities Edema: None Upper Extremities Edema: None Facial Edema: None Fall Risk Assessment History of Falling: (0) No Secondary Diagnosis: (0) No Ambulatory Aid: (0) Bedrest/Nurse Assist IV Therapy: (20) Yes Gait: (0) Normal/Bedrest/Immobile Mental Status: (0) Oriented to Own Ability Fall Score: 20 Fall Risk Score Definition: No Risk: No action required Labor Evaluation Frequency: 0 Heart Rate FHR Baseline Rate: 140 Monitor Mode: External US FHR Baseline Changes: No Baseline Change Variability: Moderate 6-25 bpm Accelerations: 15X15 Decelerations: None Category: Category I Pain Assessment Pain Scale: 0 Datetime: 06/13/2017 19:54 Bedside Blood Glucose: 115 Datetime: 06/13/2017 19:45 Stage of : Antepartum Datetime: 06/13/2017 19:00 Stage of : Antepartum Datetime: 06/13/2017 18:51 Maternal Assessment Level of Consciousness: Fully Conscious Headache: Denies Nausea/Vomiting: Denies RUQ Epigastric Pain: Denies Labor Evaluation Frequency: 0 Monitor Mode: External Resting Tone [place]: Relaxed Heart Rate FHR Baseline Rate: 140 Monitor Mode: External US FHR Baseline Changes: No Baseline Change Variability: Minimal - Undetectable to <=5 bpm Accelerations: 10X10 Decelerations: None Category: Category I Pain Assessment Pain Scale: 0 Pain Presence: None/Denies Pain Type: N/A Datetime: 06/13/2017 18:30 Maternal Assessment Level of Consciousness: Fully Conscious Headache: Denies Nausea/Vomiting: Denies RUQ Epigastric Pain: Denies Labor Evaluation Frequency: 0 Monitor Mode: External Resting Tone [place]: Relaxed Heart Rate FHR Baseline Rate: 140 Monitor Mode: External US FHR Baseline Changes: No Baseline Change Variability: Minimal - Undetectable to <=5 bpm Accelerations: 10X10 Decelerations: None Pain Assessment Pain Scale: 0 Pain Presence: None/Denies Pain Type: N/A Datetime: 06/13/2017 18:00 Maternal Assessment Level of Consciousness: Fully Conscious DTR's/Clonus: DTRs 1+ Headache: Denies Blurred Vision: No Nausea/Vomiting: Denies RUQ Epigastric Pain: Denies Lower Extremities Edema: Bilateral Lower Extremities Degree: 2+ Upper Extremities Edema: Bilateral Upper Extremities Degree: 1+ Facial Edema: None Labor Evaluation Frequency: 0 Monitor Mode: External Resting Tone [place]: Relaxed Heart Rate FHR Baseline Rate: 140 Monitor Mode: External US FHR Baseline Changes: No Baseline Change Variability: Minimal - Undetectable to <=5 bpm Decelerations: None Category: Category II Pain Assessment Pain Scale: 0 Pain Presence: None/Denies Datetime: 06/13/2017 17:30 Maternal Assessment Level of Consciousness: Fully Conscious Labor Evaluation Frequency: 0 Heart Rate FHR Baseline Rate: 140 Variability: Moderate 6-25 bpm Accelerations: 10X10 Decelerations: None Pain Assessment Pain Scale: 0 Pain Presence: None/Denies Pain Type: N/A Pain Goal: 0 Datetime: 06/13/2017 17:00 Maternal Assessment Level of Consciousness: Fully Conscious Labor Evaluation Frequency: 0 Heart Rate FHR Baseline Rate: 140 Variability: Moderate 6-25 bpm Accelerations: 10X10 Decelerations: None Pain Assessment Pain Scale: 0 Pain Presence: None/Denies Pain Type: N/A Pain Goal: 0 Datetime: 06/13/2017 16:30 Maternal Assessment Level of Consciousness: Fully Conscious Labor Evaluation Frequency: 0 Heart Rate FHR Baseline Rate: 145 Variability: Moderate 6-25 bpm Accelerations: 10X10 Decelerations: None Pain Assessment Pain Scale: 0 Pain Presence: None/Denies Pain Type: N/A Pain Goal: 0 Datetime: 06/13/2017 16:00 Maternal Assessment Level of Consciousness: Fully Conscious Labor Evaluation Frequency: 0 Heart Rate FHR Baseline Rate: 135 Variability: Moderate 6-25 bpm Accelerations: 10X10 Decelerations: None Pain Assessment Pain Scale: 0 Pain Presence: None/Denies Pain Type: N/A Pain Goal: 0 Datetime: 06/13/2017 15:30 Assessment Type: Admission Assessment Vaginal Bleeding: None Maternal Assessment Level of Consciousness: Fully Conscious DTR's/Clonus: DTRs 2+; No Clonus Headache: Denies Blurred Vision: No Respiratory Effort: Unlabored; Regular Rhythm; Equal Expansion Breath Sounds, Left: Clear and Equal Breath Sounds, Right: Clear and Equal Nausea/Vomiting: Denies RUQ Epigastric Pain: Denies Lower Extremities Edema: Bilateral Lower Extremities Degree: Pitting Upper Extremities Edema: None Degree: None Facial Edema: None Bedside Blood Glucose: 102 Fall Risk Assessment History of Falling: (0) No Secondary Diagnosis: (0) No Ambulatory Aid: (0) Bedrest/Nurse Assist IV Therapy: (20) Yes Gait: (0) Normal/Bedrest/Immobile Mental Status: (0) Oriented to Own Ability Fall Score: 20 Fall Risk Score Definition: No Risk: No action required Labor Evaluation Frequency: 0 Heart Rate FHR Baseline Rate: 135 Variability: Minimal - Undetectable to <=5 bpm Accelerations: None Decelerations: None Category: Category I Pain Assessment Pain Scale: 0 Pain Presence: None/Denies Pain Type: N/A Pain Goal: 0 Membrane Status: Intact Datetime: 06/13/2017 14:57 Labor Evaluation Frequency: 0 Monitor Mode: External Duration (sec)2399: 0 Resting Tone [place]: Relaxed Resting Tone IUP (mmHg): Heart Rate FHR Baseline Rate: 140 Monitor Mode: External US FHR Baseline Changes: No Baseline Change Variability: Moderate 6-25 bpm Decelerations: None Category: Category I Datetime: 06/13/2017 14:33 Labor Evaluation Frequency: 0 Monitor Mode: External Duration (sec)2399: 0 Resting Tone [place]: Relaxed Contraction Comments: pt denies uc's Heart Rate FHR Baseline Rate: 140 Monitor Mode: External US Variability: Moderate 6-25 bpm Accelerations: 15X15 Decelerations: None Category: Category I Datetime: 06/13/2017 14:06 Stage of : Labor Datetime: 06/13/2017 13:29 Labor Evaluation Frequency: 0 Monitor Mode: External Duration (sec)2399: 0 Resting Tone [place]: Relaxed Heart Rate FHR Baseline Rate: 145 Monitor Mode: External US Variability: Minimal - Undetectable to <=5 bpm Accelerations: 15X15 Decelerations: None Category: Category II Datetime: 06/13/2017 12:14 Time of Arrival: 06/13/2017 11:00 EGA: 34.1 Arrived By: Ambulatory Arrived From: Home Chief Complaint: pt here returning 24 urine Movement: Present Contractions: Denies/Absent Rupture of Membranes: Denies Vaginal Bleeding: None Vaginal Discharge: Denies Recent Sexual Intercouse: Denies Abdominal Trauma: Not Applicable Additional Patient Complaints: pt denies [place], upper gastric pain, Time Provider Notified: 06/13/2017 13:00 Provider Notified: dr. mcnair Initial Plan: 24 hr urine collection Datetime: 06/13/2017 11:59 Labor Evaluation Frequency: 0 Monitor Mode: External Duration (sec)2399: 0 Resting Tone [place]: Relaxed Heart Rate FHR Baseline Rate: 155 Monitor Mode: External US Variability: Moderate 6-25 bpm Accelerations: 15X15 Decelerations: None Category: Category I Datetime: 06/11/2017 15:00 Fall Score: 0 Fall Risk Score Definition: No Risk: No action required Datetime: 06/11/2017 13:41 EGA: 33.6 Datetime: 06/09/2017 07:30 Fall Score: 20 Fall Risk Score Definition: No Risk: No action required Datetime: 06/08/2017 19:50 Fall Score: 20 Fall Risk Score Definition: No Risk: No action required Datetime: 06/08/2017 15:27 Fall Score: 20 Fall Risk Score Definition: No Risk: No action required Datetime: 06/08/2017 12:25 Fall Score: 0 Fall Risk Score Definition: No Risk: No action required Datetime: 06/08/2017 12:13 EGA: 33.3
--- NOTE | 2017-06-20 15:07 | PN ---
Triage Information Date/Time Jun 20, 2017 at 14:00 Reason for visit: Weeks of Gestation 35w 1d /Para Diabetes: gestational Diabetes management: oral agent Hypertention: induced Additional information Superimposed preeclampsia Objective Heart Rate Comments Overall reasssuring Contractions: None Results/Medications Result Diagram: 06/20/17 1314 06/20/17 1314 Results 24 hrs Laboratory Tests Test 06/20/17 11:30 06/20/17 13:14 Urine Color YELLOW Urine Clarity CLEAR Urine pH 7.0 Urine Specific Plush 1.011 Urine Ketones NEGATIVE Urine Nitrite NEGATIVE Urine Bilirubin NEGATIVE Urine Urobilinogen NEGATIVE Urine Leukocyte Esterase NEGATIVE Urine Microscopic RBC 1 Urine Microscopic WBC 4 Urine Squamous Epithelial Cells MANY A Urine Bacteria MODERATE Urine Hemoglobin NEGATIVE Urine Glucose NEGATIVE Urine Total Protein 2+ H White Blood Count 8.5 Red Blood Count 4.60 Hemoglobin 13.0 Hematocrit 38.9 Mean Corpuscular Volume 84.6 Mean Corpuscular Hemoglobin 28.3 L Mean Corpuscular Hemoglobin Concent 33.4 Red Cell Distribution Width 14.5 Platelet Count 362 Mean Platelet Volume 11.2 H Neutrophils % 74.5 Lymphocytes % 17.8 Monocytes % 5.7 Eosinophils % 1.1 Basophils % 0.4 Nucleated Red Blood Cells % 0.0 Neutrophils # 6.4 Lymphocytes # 1.5 Monocytes # 0.5 Eosinophils # 0.1 Basophils # 0.0 Nucleated Red Blood Cells # 0.0 Prothrombin Time 11.1 L Prothrombin Time Ratio 0.9 INR International Normalized Ratio 0.80 Activated Partial Thromboplast Time 25.8 Fibrinogen 574.0 H Sodium Level 136 Potassium Level 4.5 Chloride Level 105 Carbon Dioxide Level 19 L Anion Gap 17 H Blood Urea Nitrogen 13 Creatinine 0.71 Glucose Level 95 Uric Acid 7.1 Calcium Level 9.6 Total Bilirubin 0.1 L Direct Bilirubin 0.00 Indirect Bilirubin 0.1 Aspartate Amino Transf (AST/SGOT) 35 Alanine Aminotransferase (ALT/SGPT) 48 Alkaline Phosphatase 265 H Total Protein 7.5 Albumin 3.7 Globulin 3.80 H Albumin/Globulin Ratio 0.97 Imaging Results BPP 8/8, YOJANA 13.8cm Disposition: Assessment/Plan 27 y/o at 35w 1d with gdma2 and hypertension with superimposed preeclampsia who meets criteria for severe preeclampsia according to her persistent BPs of 170s/80-100s. Perinatologist, Dr. Martinez, recommending delivery. Discussed extensively with patient including risk of eclampsia, stroke, demise with care clinician present. Patient spoke to and refusing induction/delivery at this time, wants to wait until 37 weeks. Patient signing out AMA. Recommend continue biweekly NST/BPP, labetolol, and metformin. Offer betamethasone. CARLENE IBARRA. Jun 20, 2017 15:07
== END 2017-06-20 15:05 | disposition left against medical advice (07) ==
LOC: OBT 11:16 → L-D 11:19 → OBT 14:00 → UNDOADMOB 14:00 → INTOOBSV 14:00 → L-D 14:00 → OBT 15:05
PROVIDERS: ATTEND Obstetrics & Gynecology
DX: O11.3 Pre-existing hypertension with pre-eclampsia, third trimester (principal); Z3A.35 35 weeks gestation of pregnancy
CPT/HCPCS: 36415; 76818; 80053; 81001; 84560; 85025; 85384; 85610; 85730; Z7500; G0463

== ENCOUNTER 2017-06-22 14:12 | Inpatient (IN) | payer MEDICAID ==
[~2017-06-22] VITALS: Ht 137.2 cm; Wt 68.7 kg
[2017-06-22] MEDS ORDERED: LABETALOL HCL 20MG INJ IV ONE (15:30)
[2017-06-22] MEDS ORDERED: LACTATED RINGER'S 1,000 ML IV* SCH (15:30)
[2017-06-22 16:06] LABS: BASOPHILS % 0.2 % (0.0-2.0); EOSINOPHILS # 0.1 10^3/ul (0.0-0.5); EOSINOPHILS % 0.7 % (0.0-7.0); HEMATOCRIT 38.8 % (37.0-47.0); HEMOGLOBIN 12.9 g/dl (12.0-16.0); LYMPHOCYTES # 1.4 10^3/ul (0.8-2.9); LYMPHOCYTES % 16.8 % (15.0-51.0); MEAN CORPUSCULAR HEMOGLOBIN 27.8 pg (29.0-33.0); MEAN CORPUSCULAR HGB CONC 33.2 g/dl (32.0-37.0); MEAN CORPUSCULAR VOLUME 83.6 fl (82.0-101.0); MEAN PLATELET VOLUME 11.7 fl (7.4-10.4); MONOCYTE # 0.4 10^3/ul (0.3-0.9); MONOCYTES % 4.8 % (0.0-11.0); NEUTROPHIL # 6.5 10^3/ul (1.6-7.5); NEUTROPHILS % 76.9 % (39.0-77.0); PLATELET COUNT 351 10^3/UL (140-415); RED BLOOD COUNT 4.64 10^6/ul (4.20-5.40); RED CELL DISTRIBUTION WIDTH 14.5 % (11.5-14.5); WHITE BLOOD COUNT 8.5 10^3/ul (4.8-10.8)
--- NOTE | 2017-06-22 16:09 | HP ---
Date/Time of Note Date/Time of Note DATE: 06/22/17 TIME: 16:03 OB - History Hx of Present Free Text/Dictation 1 para 0 at 35 weeks and 2 days of gestation estimated date of delivery July 24, 2017 presents with elevated blood pressures 175/78 on admission This patient has been followed in high risk clinic for weekly NST and biophysical profiles for gestational diabetes and preeclampsia Patient is currently on labetalol 200 mg p.o. twice daily Patient is on metformin 500 mg nightly for gestational diabetes Patient reports that she received betamethasone a week ago here at the hospital Estimated Due Date: Jul 24, 2017 : 1 Para: 0 Care: Good Care Abnormal Ultrasound Findings: PROCEDURE: US OB biophysical profile. CLINICAL INDICATION: decreased movements, labor TECHNIQUE: Multiple sonographic images of the pelvis were obtained. The images were reviewed on a PACS workstation. COMPARISON: US PELVIS 06/20/2017 FINDINGS: There is a single viable intrauterine gestation. Cardiac activity is present with 148 beats per minute. There is a vertex presentation. The placenta is anterior. There is no evidence of placental abruption. There is a normal amount of amniotic fluid with an YOJANA = 13.5 cm. Biophysical profile: movement 2/2 tone 2/2. breathing 2/2 YOJANA 2/2 Total 03/03 RPTAT: AA . IMPRESSION: Normal biophysical profile. . .Rodrigo Kruger MD, MD Date Time Electronically viewed and signed by .Rodrigo Kruger MD, MD on 06/22/2017 16: 37 .S/ CC: KRISTEN SCOTT MD PROCEDURE: US OB. CLINICAL INDICATION: Size and dates , labor TECHNIQUE: Multiple sonographic images of the pelvis and gravid uterus were obtained. The images were reviewed on a PACS workstation. COMPARISON: US PELVIS 06/20/2017 FINDINGS: There is a single viable intrauterine gestation. Cardiac activity is present with 148 beats per minute. There is a vertex presentation. The placenta is anterior. There is no evidence for an abruption or placenta previa. Measurements were made in order to determine age. The results are as follows: BPD = 8.4 cm HC = 31.1 cm AC = 30.2 cm FL = 7.2 cm Estimated gestational age of approximately 35 weeks and 0 days based on ultrasound measurements. Clinical age: 35 weeks and 3 days. The estimated date of delivery is 07/27/17, based on ultrasound measurements. The EFW = 2566 g, 35.9%, based on LMP age. RPTAT: AA IMPRESSION: Single viable intrauterine gestation of approximately 35 weeks and 0 days based on ultrasound measurements. .Rodrigo Kruger MD, MD Date Time Electronically viewed and signed by .Rodrigo Kruger MD, MD on 06/22/2017 16: 27 .S/ Obstetrical Complications: Gestational Diabetes, Pre-eclampsia Past Family/Social History * Past Medical, Surgical, Family and Obstetric Histories reviewed from chart. OB Admission Exam Physical Exam HEENT: WNL Heart: Rhythm Normal Lungs: Clear, Equal Abdomen: WNL Extremities: Normal Reflexes: Normal Cervical Dilatation: None Heart Rate: 140's Accelerations: Accelerations Present Decelerations: No Decelerations Varibility: Moderate OB Assessment/Plan Other Assessment: 35 wks gestation with PIH and gestational diabetes Other plan: Admit to L&D Labetalol IV push IV fluids and PIH labs OB ultrasound including biophysical profile and estimated weight Obtain perinatology consult Consider magnesium sulfate if high blood pressure continues Copies To: CC: ANGIE CARBAJAL MD, BAHAREH MD Jun 22, 2017 16:09
[2017-06-22 16:11] LABS: ADD UMIC YES; UR ASCORBIC ACID NEGATIVE (NEGATIVE); UR BACTERIA MANY /HPF (NONE SEEN); UR BILIRUBIN (Dip) NEGATIVE (NEGATIVE); UR BLOOD (Dip) NEGATIVE (NEGATIVE); UR CLARITY SLIGHTLY CLOUDY (CLEAR); UR COLOR YELLOW (YELLOW); UR GLUCOSE (Dip) NEGATIVE (NEGATIVE); UR KETONES (Dip) NEGATIVE (NEGATIVE); UR LEUKOCYTE ESTERASE (Dip) NEGATIVE Leu/ul (NEGATIVE); UR NITRITE (Dip) NEGATIVE (NEGATIVE); UR RBC 3 /HPF (0-5); UR SPECIFIC GRAVITY (Dip) 1.004 (1.003-1.030); UR SQUAMOUS EPITHELIAL CELL FEW /HPF (FEW); UR TOTAL PROTEIN (Dip) 2+ mg/dl (NEGATIVE); UR UROBILINOGEN (Dip) NEGATIVE (NEGATIVE)
[2017-06-22 16:22] LABS: INR 0.82; PARTIAL THROMBOPLASTIN TIME 25.6 Sec (25.0-35.0); PROTIME 11.3 Sec (12.2-14.2); PT RATIO 0.9
[2017-06-22 16:24] LABS: ALBUMIN 3.6 g/dl (3.3-4.9); BILIRUBIN,INDIRECT 0.2 mg/dl (0-1.1); BILIRUBIN,TOTAL 0.2 mg/dl (0.2-1.3); CALCIUM 9.1 mg/dl (8.4-10.2); CREATININE 0.66 mg/dl (0.44-1.00); POTASSIUM 4.1 mmol/L (3.5-5.1); TOTAL PROTEIN 7.2 g/dl (6.1-8.1); URIC ACID 7.5 mg/dl (3.1-7.9)
[2017-06-22 16:26] VITALS: Ht 137.2 cm; Wt 68.7 kg
--- NOTE | 2017-06-22 16:27 | RADRPT ---
PROCEDURE: US OB. CLINICAL INDICATION: Size and dates , labor TECHNIQUE: Multiple sonographic images of the pelvis and gravid uterus were obtained. The images were reviewed on a PACS workstation. COMPARISON: US PELVIS 06/20/2017 FINDINGS: There is a single viable intrauterine gestation. Cardiac activity is present with 148 beats per min vlad. There is a vertex presentation. The placenta is anterior. There is no evidence for an abruption or placenta previa. Measurements were made in order to determine age. The results are as follows: BPD =8.4 cm HC =31.1 cm AC =30.2 cm FL =7.2 cm Estimated gestational age of approximately 35 weeks and 0 days based on ultrasound measurements. Clinical age: 35 weeks and 3 days. The estimated date of delivery is 07/27/17, based on ultrasound measurements. The EFW = 2566 g, 35.9%, based on LMP age. RPTAT: AA IMPRESSION: Single viable intrauterine gestation of approximately 35 weeks and 0 days based on ultrasound measu rements. .Rodrigo Kruger MD, MD Date Time Electronically viewed and signed by .Rodrigo Kruger MD, on 06/22/2017 16:27 .S/
[2017-06-22 16:28] VITALS: BP 152/91; PULSE 81; RESP 20
--- NOTE | 2017-06-22 16:37 | RADRPT ---
PROCEDURE: US OB biophysical profile. CLINICAL INDICATION: decreased movements, labor TECHNIQUE: Multiple sonographic images of the pelvis were obtained. The images were reviewed on a PACS workstation. COMPARISON: US PELVIS 06/20/2017 FINDINGS: There is a single viable intrauterine gestation. Cardiac activity is present with 148 beats per min vlad. There is a vertex presentation. The placenta is anterior. There is no evidence of placental abruption. There is a normal amount of amniotic fluid with an YOJANA = 13.5 cm. Biophysical profile: movement 2/2 tone 2/2. breathing 2/2 YOJANA 2/2 Total 03/03 RPTAT: AA . IMPRESSION: Normal biophysical profile. . .Rodrigo Kruger MD, MD Date Time Electronically viewed and signed by .Rodrigo Kruger MD, MD on 06/22/2017 16:37 .S/
[2017-06-22] MEDS ORDERED: LACTATED RINGER'S 1,000 ML IV SCH (17:50)
[2017-06-22] MEDS ORDERED: CARBOPROST 250 MCG INJ IM PRN (18:00)
[2017-06-22] MEDS ORDERED: MISOPROSTOL 200 MCG TAB PR PRN (18:00)
[2017-06-22] MEDS ORDERED: OXYTOCIN 30 UNITS/LR 500 ML IV PRN (18:00)
[2017-06-22] MEDS ORDERED: METHYLERGONOVINE 0.2 MG INJ IM PRN (18:00)
[2017-06-22] MEDS ORDERED: DEXTROSE 50% 50 ML SYRINGE IV PRN ×2 (19:30)
[2017-06-22] MEDS ORDERED: GLUCOSE GEL 15 GRAM TUBE PO PRN ×2 (19:30)
[2017-06-22] MEDS ORDERED: GLUCAGON 1 MG INJ IM PRN (19:30)
[2017-06-22] MEDS ORDERED: GLUCOSE GEL 15 GRAM TUBE BUCCAL PRN (19:30)
[2017-06-22] MEDS ORDERED: LABETALOL 200 MG TAB PO SCH (21:00)
[2017-06-22] MEDS ORDERED: metFORMIN 500 MG TAB PO SCH (21:00)
[2017-06-22] MEDS: LABETALOL 100 MG TAB PO SCH (21:11)
[2017-06-22] MEDS: LACTATED RINGER'S 1,000 ML IV SCH (22:13)
[2017-06-23] VITALS (7 sets, daily range): BP systolic 126–164; BP diastolic 61–82; PULSE 70–89; RESP 18–19
[2017-06-23] MEDS: LACTATED RINGER'S 1,000 ML IV SCH ×2 (02:55→11:03)
[2017-06-23] MEDS ORDERED: OXYTOCIN 30 UNITS/LR 500 ML BAG IV ONE (07:00)
[2017-06-23] MEDS: ACCU-CHEK XX SCH ×2 (07:30→21:10)
[2017-06-23] MEDS ORDERED: PRENATAL VITAMIN PO SCH (09:00)
[2017-06-23] MEDS: LABETALOL 100 MG TAB PO SCH (09:21)
[2017-06-23] MEDS ORDERED: MAGNESIUM SULFATE 4 GM/100 ML 100 ML IVPB ONE (11:00)
[2017-06-23] MEDS: MAGNESIUM SULFATE 20 GM/500 ML 500 ML IV SCH ×2 (12:04→22:34)
[2017-06-23] MEDS ORDERED: CEFAZOLIN 1 GM/50 ML (PMX) 50 ML IVPB ONE (12:13)
[2017-06-23] MEDS ORDERED: CITRIC ACID/NA CITRATE 30 ML CUP ONE (12:15)
[2017-06-23] MEDS ORDERED: ONDANSETRON 4 MG INJ ONE (12:15)
[2017-06-23] MEDS ORDERED: ONDANSETRON 4 MG INJ IV STA (12:18)
[2017-06-23] MEDS ORDERED: CITRIC ACID/SODIUM CITRATE 15 ML CUP PO ONE (12:20)
[2017-06-23] MEDS ORDERED: EPHEDrine SULFATE 50 MG/5 ML SYG ONE (12:23)
[2017-06-23] MEDS ORDERED: PHENYLephrine (100 MCG/ML) 5ML SYG ONE (12:23)
[2017-06-23] MEDS ORDERED: morphine SULFATE/PF (10 MG/10 ML) INJ ONE ×2 (12:23→16:39)
[2017-06-23] MEDS ORDERED: CARBOPROST 250 MCG INJ IM PRN ×2 (12:30→17:30)
[2017-06-23] MEDS ORDERED: OXYTOCIN 30 UNITS/LR 500 ML IV PRN ×2 (12:30→17:30)
[2017-06-23] MEDS ORDERED: METHYLERGONOVINE 0.2 MG INJ IM PRN ×2 (12:30→17:30)
[2017-06-23] MEDS ORDERED: MISOPROSTOL 200 MCG TAB PR PRN ×2 (12:30→17:30)
[2017-06-23] MEDS ORDERED: NALOXONE (0.4 MG/ML) INJ IV PRN (13:30)
[2017-06-23] MEDS ORDERED: KETOROLAC 30 MG INJ IV PRN ×3 (13:30→20:00)
[2017-06-23] MEDS ORDERED: ZOLPIDEM 5 MG TAB PO PRN (13:30)
[2017-06-23] MEDS ORDERED: METOCLOPRAMIDE 10 MG INJ IV PRN (13:30)
[2017-06-23] MEDS ORDERED: FENTAnyl 50 MCG/ML VIAL IV PRN ×2 (13:30)
[2017-06-23] MEDS ORDERED: DIPHENHYDRAMINE 50 MG INJ IV PRN ×3 (13:30→19:53)
[2017-06-23] MEDS ORDERED: ONDANSETRON 4 MG INJ IV PRN ×3 (13:30→20:00)
--- NOTE | 2017-06-23 14:42 | OPR ---
Operative Report Planned Procedure Free Text/Dictation 27 years old female EDC July 24, 2018 C complicated with severe PIH and GDM suspected IUGR category 2 heart tracing perinatologist recommended delivery, with long closed cervix induction of labor discussed with the patient declined trial of labor decided on alternative route of delivery by section Procedure date Jun 23, 2017 Procedure(s) Primary due to severe PIH GDM, IUGR, reassuring heart tracing. delivery recommended by perinatology Performed by see signature line Order Puller DR UGARTE Anesthesiologist: LILLY GALLEGOS Pre-procedure diagnosis 35 weeks 5 days complicated with severe PIH and GDM Anesthesia Type: spinal Post-Procedure Post-procedure diagnosis 35 weeks 5 days complicated with severe PIH and GDM on medication Findings Live Baby girl 999 baby waited 2210 g Estimated Blood Loss: 600 - 700 mls Specimen(s) none Grafts/Implant(s) none Complication(s) none Procedure Description Under satisfactory spinal anesthesia patient prepped and draped and placed in supine position. Pfannenstiel incision was made. Incision carried through the subcutaneous tissue. Fascia incised to the length of incision. Rectus muscle divided in midline. Peritoneum exposed and entered to a vertical incision. Exploration of abdomen revealed [gravid uterus at term normal-appearing tubes and ovaries.] Bladder flap was developed. Transverse incision was made in the lower segment of the uterus. Amniotic sac ruptured, [clear amniotic fluid noted. ] Live baby girl was delivered from unengaged vertex 9 and 9 baby's weight 2210 g.Naso oropharyngeal suction was performed. Baby handed to the team for immediate attention. Patient received 20 units of Pitocin. Placenta delivered manually intact. Uterine cavity cleaned with a wet sponge and drainage established. Uterus closed in 2 layers using Monocryl #1 in continuous fashion. Peritoneal cavity irrigated with warm saline. Sponge needle instrument reported to be correct. Abdominal peritoneum closed with 2-0 chromic catgut continuously. Fascia closed with #1 PDS in a continuous fashion. Subcutaneous tissue irrigated with warm saline and approximated with 2-0 chromic catgut skin closed with zev. Estimated blood loss 600 cc [ ]. Urine bag containing [200 ] mL of [clear] urine. Patient tolerated procedure well and transferred to recovery room in good condition. ANGIE CARBAJAL MD Jun 23, 2017 14:42
[2017-06-23] MEDS ORDERED: LABETALOL HCL 20MG INJ IV ONE (16:05)
[2017-06-23] MEDS ORDERED: CEFAZOLIN 1 GM/50 ML (PMX) 50 ML IVPB SCH (17:30)
[2017-06-23] MEDS ORDERED: LANOLIN 7 GM TUBE TOP PRN (17:30)
[2017-06-23] MEDS ORDERED: OXYCODONE/ACETAMINOPHEN (5/325) TAB PO PRN (17:30)
[2017-06-23] MEDS ORDERED: HYDROCODONE/APAP (5/325) TAB PO PRN ×2 (17:30)
[2017-06-23] MEDS: OXYTOCIN 30 UNITS/LR 500 ML IV SCH ×3 (17:35→17:39)
[2017-06-23] MEDS ORDERED: IBUPROFEN 600 MG TAB PO SCH (18:00)
[2017-06-23] MEDS: LABETALOL 200 MG TAB PO SCH (20:57)
[2017-06-23] MEDS ORDERED: LABETALOL 200 MG TAB PO SCH (21:00)
[2017-06-24] VITALS (17 sets, daily range): BP systolic 120–142; BP diastolic 70–84; PULSE 75–98; RESP 16–18
[2017-06-24] MEDS: OXYTOCIN 30 UNITS/LR 500 ML IV SCH ×4 (01:16→17:17)
[2017-06-24] MEDS: ACCU-CHEK XX SCH ×4 (08:00→21:49)
[2017-06-24] MEDS: SENNA/DOCUSATE NA (8.6MG/50MG) TAB PO SCH ×2 (09:00→21:51)
[2017-06-24 09:04] LABS: BASOPHILS % 0.4 % (0.0-2.0); EOSINOPHILS % 0.3 % (0.0-7.0); HEMATOCRIT 33.5 % (37.0-47.0); HEMOGLOBIN 11.1 g/dl (12.0-16.0); LYMPHOCYTES # 1.4 10^3/ul (0.8-2.9); LYMPHOCYTES % 12.8 % (15.0-51.0); MEAN CORPUSCULAR HEMOGLOBIN 27.7 pg (29.0-33.0); MEAN CORPUSCULAR HGB CONC 33.1 g/dl (32.0-37.0); MEAN CORPUSCULAR VOLUME 83.5 fl (82.0-101.0); MEAN PLATELET VOLUME 11.4 fl (7.4-10.4); MONOCYTE # 0.5 10^3/ul (0.3-0.9); MONOCYTES % 4.9 % (0.0-11.0); NEUTROPHIL # 8.9 10^3/ul (1.6-7.5); NEUTROPHILS % 81.1 % (39.0-77.0); PLATELET COUNT 305 10^3/UL (140-415); RED BLOOD COUNT 4.01 10^6/ul (4.20-5.40); RED CELL DISTRIBUTION WIDTH 14.4 % (11.5-14.5)
[2017-06-24] MEDS: LABETALOL 200 MG TAB PO SCH ×2 (09:08→21:51)
--- NOTE | 2017-06-24 09:39 | QN ---
Documentation Comment Post day 1 Vital signs are stable, her blood pressures running 130s over 70s, advised to discontinue magnesium sulfate today at 12 noon, recommended ambulation with help , she was placed on 2200 ADM diet, her abdomen is soft, bowel sounds are present but weak, ambulation encouraged, recommended advance diet as tolerated when she started passing gas. ANGIE CARBAJAL MD Jun 24, 2017 09:39
[2017-06-24] MEDS: MAGNESIUM SULFATE 20 GM/500 ML 500 ML IV SCH ×2 (10:21→17:00)
[2017-06-24] MEDS: IBUPROFEN 600 MG TAB PO SCH ×2 (13:42→17:36)
[2017-06-24] MEDS: OXYCODONE/ACETAMINOPHEN (5/325) TAB PO PRN ×2 (16:27→22:04)
[2017-06-25] MEDS: IBUPROFEN 600 MG TAB PO SCH ×5 (00:43→23:45)
[2017-06-25 04:00] VITALS: BP 115/71; PULSE 69; RESP 18
[2017-06-25 08:30] VITALS: BP 149/81; PULSE 66; RESP 18
[2017-06-25] MEDS: SENNA/DOCUSATE NA (8.6MG/50MG) TAB PO SCH ×2 (08:38→20:50)
[2017-06-25] MEDS: LABETALOL 200 MG TAB PO SCH ×2 (08:38→20:50)
[2017-06-25] MEDS: ACCU-CHEK XX SCH ×4 (08:39→21:36)
[2017-06-25 11:50] VITALS: BP_SYST 130; BP_SYST 133; BP_DIAS 79; PULSE 68; RESP 18
[2017-06-25 15:51] VITALS: BP_SYST 136; BP_SYST 146; BP_DIAS 78; PULSE 80
--- NOTE | 2017-06-25 15:58 | CONS ---
Date/Time of Note Date/Time of Note DATE: 06/25/17 TIME: 15:57 Consultation Date/Type/Reason Admit Date/Time Jun 22, 2017 at 14:12 Initial Consult Date 06/24/17 Type of Consultation: Anesthesiology Reason for Consultation follow up 24 HR Interval Summary Free Text/Dictation pt seen and examined on 06/24/17 at bedside is POD#1 s/p c/s. Pt received duramorph spinal for post op pain relief. She states her pain is controlled adequately. No N/V/D/C/[place]/Numbness in extremities. Will follow. Exam/Review of Systems Vital Signs Vitals Vital Signs Date Time Temp Pulse Resp B/P Pulse Ox O2 Delivery O2 Flow Rate FiO2 06/25/17 15:51 98.0 80 146/78 Room Air 06/25/17 11:50 18 06/23/17 18:59 100 Intake and Output 06/24/17 06/24/17 06/25/17 15:00 23:00 07:00 Intake Total 1260 ml 100 ml Output Total 1000 ml 820 ml Balance 260 ml -720 ml Results Result Diagram: 06/24/17 0720 06/22/17 1430 Results 24 hrs Laboratory Tests Test 06/24/17 21:47 06/25/17 08:19 06/25/17 10:55 06/25/17 15:12 Bedside Glucose 120 98 111 116 Medications Medications Current Medications Acetaminophen/ Hydrocodone Bitart ([place] (5/325)) 1 tab Q4H PRN PO PAIN LEVEL 4 -6; Start 06/23/17 at 17:30 Acetaminophen/ Hydrocodone Bitart ([place] (5/325)) 2 tab Q4H PRN PO PAIN LEVEL 7 -10; Start 06/23/17 at 17:30 Oxycodone/ Acetaminophen (Percocet (5/ 325)) 1 tab Q4H PRN PO PAIN LEVEL 4-6 Last administered on 06/24/17t 22:04; Admin Dose 1 TAB; Start 06/23/17 at 17: 30 Oxycodone/ Acetaminophen (Percocet (5/ 325)) 2 tab Q4H PRN PO PAIN LEVEL 7-10; Start 06/23/17 at 17:30 Simethicone (Mylicon) 160 mg Q8H PRN PO DISTENSION/GAS/BLOATING; Start at 17:30 Senna/Docusate Sodium (Senokot-S) 1 tab BID PO Last administered on 06/25/17 08:38; Admin Dose 1 TAB; Start 06/24/17 at 09:00 Diphtheria/ Tetanus/Acell Pertussis 0.5 ml 0.5 ml ONCE ONCE IM* ; Start at 09:00; Stop 06/26/17 at 09:01 Oxytocin/Lactated Ringer's 500 ml @ 0 mls/hr ONCE PRN IV For Hemorrhage Management; Start 06/23/17 at 17:30 Methylergonovine Maleate (Methergine) 0.2 mg ONCE PRN IM VAGINAL BLEEDING; Start 06/23/17 at 17:30 Carboprost Tromethamine (Hemabate) 250 mcg ONCE PRN IM VAGINAL BLEEDING; Start 06/23/17 at 17:30 Misoprostol (Cytotec) 1,000 mcg ONCE PRN MA VAGINAL BLEEDING; Start 06/23/17 at 17:30 Labetalol HCl (Normodyne) 200 mg BID PO Last administered on 06/25/17 08:38; Admin Dose 200 MG; Start 06/23/17 at 21:00 Ibuprofen (Motrin) 600 mg Q6 PO Last administered on 06/25/17 11:41; Admin Dose 600 MG; Start 06/24/17 at 12:00 Diphenhydramine HCl (Benadryl) 25 mg Q6H PRN IV ITCHING; Start 06/23/17 at 19: 53 Ondansetron HCl (Zofran Inj) 4 mg Q6H PRN IV NAUSEA AND/OR VOMITING; Start at 20:00 LILLY GALLEGOS Jun 25, 2017 15:58
--- NOTE | 2017-06-25 18:58 | PN ---
Date/Time of Note Date/Time of Note DATE: 06/25/17 TIME: 18:57 OB Subjective Subjective Subjective Post C section day 2 Doing Well Afebrile Ambulatory Chest Clear Breasts are soft , Nipples are intact Abdomen is soft Fundus is firm Moderate amount of lochia Incision is clean ,No evidence of infection No calf tenderness No ankle edema Laboratory Tests Test 06/24/17 21:47 06/25/17 08:19 06/25/17 10:55 06/25/17 15:12 Bedside Glucose 120mg/dL 98mg/dL 111mg/dL 116mg/dL Current Medications Medications (Trade) Dose Ordered Sig/Annette Route PRN Reason Start Time Stop Time Status Last Admin Dose Admin Lactated Ringer's (Lr) 1,000 ml @ 125 mls/hr Q8H IV* 06/22/17 15:30 06/22/17 20:55 DC 06/22/17 16:24 Labetalol HCl 20 mg 20 mg ONCE ONCE IV 06/22/17 15:30 06/22/17 15:31 DC 06/22/17 16:21 Lactated Ringer's 1,000 ml @ 125 mls/hr Q8H IV 06/22/17 17:50 06/22/17 22:19 DC Oxytocin/Lactated Ringer's 500 ml @ 0 mls/hr ONCE PRN IV For Hemorrhage Management 06/22/17 18:00 06/22/17 20:55 DC Methylergonovine Maleate (Methergine) 0.2 mg ONCE PRN IM VAGINAL BLEEDING 06/22/17 18:00 06/22/17 20:55 DC Carboprost Tromethamine (Hemabate) 250 mcg ONCE PRN IM VAGINAL BLEEDING 06/22/17 18:00 06/22/17 20:55 DC Misoprostol 1000 mcg 1,000 mcg ONCE PRN MI VAGINAL BLEEDING 06/22/17 18:00 06/22/17 20:55 DC Lactated Ringer's (Lr) 1,000 ml @ 125 mls/hr Q8H IV 06/22/17 19:03 06/23/17 17:30 DC 06/23/17 02:55 Prenat Multivit/ Target Man/Iron/Folic Ac () 1 tab DAILY PO 06/23/17 09:00 06/23/17 17:30 DC 06/23/17 09:21 Metformin HCl (Glucophage) 500 mg HS PO 06/22/17 21:00 06/23/17 17:30 DC 06/22/17 21:09 Labetalol HCl (Normodyne) 200 mg BID PO 06/22/17 21:00 06/22/17 21:03 DC Miscellaneous Information 1 ea NOTE XX 06/22/17 19:30 06/23/17 17:30 DC Glucose (Glutose) 15 gm Q15M PRN PO DECREASED GLUCOSE 06/22/17 19:30 06/23/17 17:30 DC Glucose (Glutose) 22.5 gm Q15M PRN PO DECREASED GLUCOSE 06/22/17 19:30 06/23/17 17:30 DC Dextrose (D50w Syringe) 25 ml Q15M PRN IV DECREASED GLUCOSE 06/22/17 19:30 06/23/17 17:30 DC Dextrose (D50w Syringe) 50 ml Q15M PRN IV DECREASED GLUCOSE 06/22/17 19:30 06/23/17 17:30 DC Glucagon (Glucagen) 1 mg Q15M PRN IM DECREASED GLUCOSE 06/22/17 19:30 06/23/17 17:30 DC Glucose (Glutose) 15 gm Q15M PRN BUCCAL DECREASED GLUCOSE 06/22/17 19:30 06/23/17 17:30 DC Diagnostic Test (Pha) (Accu-Chek) 1 ea 2 HOURS AFTER MEALS XX 06/23/17 21:00 06/24/17 21:49 Diagnostic Test (Pha) (Accu-Chek) 1 ea FASTING BLOOD SUGAR XX 06/23/17 07:30 06/24/17 08:00 Labetalol HCl 200 mg 200 mg BID PO 06/22/17 21:03 06/23/17 17:30 DC 06/23/17 09:21 Magnesium Sulfate 100 ml @ 200 mls/hr ONCE ONCE IVPB 06/23/17 11:00 06/23/17 11:29 DC 06/23/17 11:42 Magnesium Sulfate 500 ml @ 50 mls/hr Q10H IV 06/23/17 11:00 06/24/17 18:02 DC 06/24/17 10:21 Cefazolin Sodium (Ancef 1 Gm/50 ml (Pmx)) 50 ml @ STK-MED ONCE IVPB 06/23/17 12:13 06/23/17 12:14 DC Ondansetron HCl (Zofran Inj) 4 mg STK-MED ONCE .ROUTE 06/23/17 12:15 06/23/17 12:16 DC Citric Acid/ Sodium Citrate 30 ml 30 ml STK-MED ONCE .ROUTE 06/23/17 12:15 06/23/17 12:16 DC Oxytocin/Lactated Ringer's 500 ml @ 0 mls/hr ONCE PRN IV For Hemorrhage Management 06/23/17 12:30 06/23/17 17:30 DC 06/23/17 15:17 Methylergonovine Maleate (Methergine) 0.2 mg ONCE PRN IM VAGINAL BLEEDING 06/23/17 12:30 06/23/17 17:30 DC Carboprost Tromethamine (Hemabate) 250 mcg ONCE PRN IM VAGINAL BLEEDING 06/23/17 12:30 06/23/17 17:30 DC Misoprostol (Cytotec) 1,000 mcg ONCE PRN [place] VAGINAL BLEEDING 06/23/17 12:30 06/23/17 17:30 DC Citric Acid/ Sodium Citrate (Bicitra) 30 ml ONCE ONCE PO 06/23/17 12:20 06/23/17 12:24 DC 06/23/17 13:41 Ondansetron HCl (Zofran Inj) 4 mg ONCE STAT IV 06/23/17 12:18 06/23/17 12:24 DC 06/23/17 13:42 Morphine Sulfate (Duramorph) 10 mg STK-MED ONCE .ROUTE 06/23/17 12:23 06/23/17 12:24 DC Ephedrine Sulfate 50 mg STK-MED ONCE .ROUTE 06/23/17 12:23 06/23/17 12:24 DC Phenylephrine HCl (Brad-Synephrine Inj Syg) 500 mcg STK-MED ONCE .ROUTE 06/23/17 12:23 06/23/17 12:24 DC Fentanyl (Sublimaze) 25 mcg PACU ORDER PRN IV MILD PAIN LEVEL 1-3 06/23/17 13:30 06/23/17 17:30 DC Fentanyl (Sublimaze) 50 mcg PACU ODER PRN IV MODERATE PAIN LEVEL 4-6 06/23/17 13:30 06/23/17 17:30 DC Ketorolac Tromethamine (Toradol) 30 mg PACU ORDER PRN IV FOR PAIN AFTER IV NARCOTIC MED 06/23/17 13:30 06/23/17 17:30 DC 06/23/17 13:41 Ondansetron HCl (Zofran Inj) 4 mg PACU ORDER PRN IV NAUSEA AND/OR VOMITING 06/23/17 13:30 06/23/17 17:30 DC Metoclopramide HCl (Reglan) 10 mg PACU ORDER PRN IV NAUSEA AND/OR VOMITING 06/23/17 13:30 06/23/17 17:30 DC Diphenhydramine HCl (Benadryl) 25 mg PACU ORDER PRN IV PRURITUS 06/23/17 13:30 06/23/17 17:30 DC Naloxone HCl (Narcan) 0.1 mg Q2M PRN IV FOR RESP RATE 8 OR LESS 06/23/17 13:30 06/23/17 17:30 DC Ketorolac Tromethamine (Toradol) 30 mg Q6H PRN IV PAIN 06/23/17 13:30 06/23/17 17:30 DC Diphenhydramine HCl (Benadryl) 25 mg Q6H PRN IV ITCHING 06/23/17 13:30 06/23/17 17:30 DC Ondansetron HCl (Zofran Inj) 4 mg Q6H PRN IV NAUSEA AND/OR VOMITING 06/23/17 13:30 06/23/17 17:30 DC Zolpidem Tartrate (Ambien) 5 mg HS MAY REPEAT X 1 PRN PO INSOMNIA 06/23/17 13:30 06/23/17 17:30 DC Labetalol HCl (Labetalol) 20 mg ONCE ONCE IV 06/23/17 16:05 06/23/17 16:18 DC 06/23/17 16:25 Labetalol HCl (Normodyne) 200 mg BID PO 06/23/17 21:00 06/23/17 21:00 DC Morphine Sulfate (Duramorph) 10 mg STK-MED ONCE .ROUTE 06/23/17 16:39 06/23/17 16:40 DC Acetaminophen/ Hydrocodone Bitart ([place] (5/325)) 1 tab Q4H PRN PO PAIN LEVEL 4-6 06/23/17 17:30 Acetaminophen/ Hydrocodone Bitart ([place] (5/325)) 2 tab Q4H PRN PO PAIN LEVEL 7-10 06/23/17 17:30 Oxycodone/ Acetaminophen (Percocet (5/ 325)) 1 tab Q4H PRN PO PAIN LEVEL 4-6 06/23/17 17:30 06/24/17 22:04 Oxycodone/ Acetaminophen (Percocet (5/ 325)) 2 tab Q4H PRN PO PAIN LEVEL 7-10 06/23/17 17:30 Ibuprofen (Motrin) 600 mg Q6 PO 06/23/17 18:00 06/23/17 19:52 DC Simethicone (Mylicon) 160 mg Q8H PRN PO DISTENSION/GAS/BLOATING 06/23/17 17:30 Senna/Docusate Sodium (Senokot-S) 1 tab BID PO 06/24/17 09:00 06/25/17 08:38 Lanolin (Pbk-Y-Cjpiqa) 1 applic BEDSIDE MEDICATION PRN TOP BEDSIDE FOR NAVID TO NIPPLES 06/23/17 17:30 Diphtheria/ Tetanus/Acell Pertussis 0.5 ml 0.5 ml ONCE ONCE IM* 06/26/17 09:00 06/26/17 09:01 Oxytocin/Lactated Ringer's 500 ml @ 0 mls/hr ONCE PRN IV For Hemorrhage Management 06/23/17 17:30 Methylergonovine Maleate (Methergine) 0.2 mg ONCE PRN IM VAGINAL BLEEDING 06/23/17 17:30 Carboprost Tromethamine (Hemabate) 250 mcg ONCE PRN IM VAGINAL BLEEDING 06/23/17 17:30 Misoprostol 1000 mcg 1,000 mcg ONCE PRN MI VAGINAL BLEEDING 06/23/17 17:30 Cefazolin Sodium 50 ml @ 100 mls/hr ONCE IVPB 06/23/17 17:30 06/23/17 17:59 DC 06/23/17 20:57 Oxytocin/Lactated Ringer's 500 ml @ 125 mls/hr Q4H IV 06/23/17 17:17 06/24/17 18:02 DC 06/24/17 07:28 Labetalol HCl (Normodyne) 200 mg BID PO 06/23/17 21:00 06/25/17 08:38 Ibuprofen (Motrin) 600 mg Q6 PO 06/24/17 12:00 06/25/17 17:35 Diphenhydramine HCl (Benadryl) 25 mg Q6H PRN IV ITCHING 06/23/17 19:53 Ketorolac Tromethamine (Toradol) 30 mg Q6H PRN IV PAIN 06/23/17 20:00 06/24/17 08:00 DC Ondansetron HCl (Zofran Inj) 4 mg Q6H PRN IV NAUSEA AND/OR VOMITING 06/23/17 20:00 Oxytocin/Lactated Ringer's 30 unit STK-MED ONCE IV 06/23/17 07:00 06/24/17 17:15 DC New born is doing well, Breast feeding ALYCIA UGARTE MD Jun 25, 2017 18:58
[2017-06-25 20:00] VITALS: BP 112/71; PULSE 88; RESP 18
[2017-06-25 20:50] VITALS: BP 127/72; PULSE 76; RESP 18
[2017-06-25] MEDS: OXYCODONE/ACETAMINOPHEN (5/325) TAB PO PRN (23:45)
[2017-06-26] VITALS (8 sets, daily range): BP systolic 127–164; BP diastolic 61–85; PULSE 63–78; RESP 16–18
[2017-06-26] MEDS: IBUPROFEN 600 MG TAB PO SCH ×4 (06:35→23:43)
[2017-06-26] MEDS: ACCU-CHEK XX SCH ×4 (08:47→20:33)
[2017-06-26] MEDS: SENNA/DOCUSATE NA (8.6MG/50MG) TAB PO SCH ×2 (08:50→20:34)
[2017-06-26] MEDS: LABETALOL 200 MG TAB PO SCH ×2 (08:50→20:34)
[2017-06-26] MEDS ORDERED: DIPHTH/TET/ACEL PERTUSS (ADULT) 0.5 ML VIAL IM* ONE (09:00)
--- NOTE | 2017-06-26 10:11 | QN ---
Documentation Comment Post day3 Afebrile vital signs are stable Abdomen soft, bowel sounds present no bowel movement, incision dry, lochia moderate, extremities normal ANGIE CARBAJAL MD Jun 26, 2017 10:11
[2017-06-26] MEDS: OXYCODONE/ACETAMINOPHEN (5/325) TAB PO PRN (21:58)
[2017-06-27 04:00] VITALS: BP 143/87; PULSE 79; RESP 18
[2017-06-27] MEDS: IBUPROFEN 600 MG TAB PO SCH ×3 (05:35→17:26)
[2017-06-27] MEDS: ACCU-CHEK XX SCH ×3 (06:00→13:50)
[2017-06-27 07:30] VITALS: BP 162/80; PULSE 69; RESP 20
[2017-06-27 08:45] VITALS: BP 129/75; PULSE 74; RESP 20
[2017-06-27] MEDS: SENNA/DOCUSATE NA (8.6MG/50MG) TAB PO SCH (08:54)
[2017-06-27] MEDS: LABETALOL 200 MG TAB PO SCH (08:56)
--- NOTE | 2017-06-27 10:54 | DS ---
Date/Time of Note Date/Time of Note DATE: 06/27/17 TIME: 10:51 Discharge Summary Admission/Discharge Info Admit Date/Time Jun 22, 2017 at 14:12 Discharge Date/Time June 27, 2017 at 10:50 AM Discharge Diagnosis Post primary Patient Condition: Good Procedures Primary for -induced hypertension GDM, nonreassuring heart tracing Hx of Present Illness Term admitted to the hospital for delivery Hospital Course Satisfactory uneventful Home Meds Reported Medications Metformin Hcl* (Metformin Hcl*) 500 Mg Tablet, 500 MG PO WITH MEALS BEDTIME, # 90 TAB 06/11/17 Labetalol Hcl* (Labetalol Hcl*) 200 Mg Tablet, 200 MG PO BID, TAB 06/11/17 Vit W-Ca,Fe,FA(<1 mg) ( Vitamins) 1 Each Tablet, 1 EACH PO, TAB 06/08/17 Follow-up Plan Post instruction given recommended to make appointment to be seen at the clinic in 1 week Primary Care Provider Care Physician No Primary Time spent on discharge: < 30 minutes Pending Labs Laboratory Tests Test 06/26/17 11:09 06/26/17 16:07 06/26/17 20:32 06/27/17 07:48 Bedside Glucose 121mg/dL (70-220) 108mg/dL (70-220) 109mg/dL (70-220) 92mg/dL (70-220) ANGIE CARBAJAL MD Jun 27, 2017 10:54
[2017-06-27 12:00] VITALS: BP 130/76; PULSE 74; RESP 18
[2017-06-27 16:15] VITALS: BP 179/78; PULSE 68; RESP 20
[2017-06-27] MEDS ORDERED: LABETALOL 200 MG TAB PO ONE (17:30)
[2017-06-27 18:30] VITALS: BP 141/76; PULSE 70; RESP 18
== END 2017-06-27 19:00 | disposition home or self-care (01) | DRG 766 ==
LOC: L-D 14:12 → OBG 20:09 → L-D 06-23 12:18 → PP1 06-23 17:24
PROVIDERS: ADMIT Obstetrics & Gynecology; ATTEND Obstetrics & Gynecology
PROC: 3E033VJ Introduction of Other Hormone into Peripheral Vein, Percutaneous Approach (ICD-10-PCS; 2017-06-23)
PROC: 10D00Z1 Extraction of Products of Conception, Low, Open Approach (ICD-10-PCS; principal; 2017-06-23 12:45)
DX: O13.4 Gestational [pregnancy-induced] hypertension without significant proteinuria, complicating childbirth (principal); O60.14X0 Preterm labor third trimester with preterm delivery third trimester, not applicable or unspecified; O24.429 Gestational diabetes mellitus in childbirth, unspecified control; O76 Abnormality in fetal heart rate and rhythm complicating labor and delivery; Z3A.35 35 weeks gestation of pregnancy; Z37.0 Single live birth
CPT/HCPCS: 76815; 76818; 80053; 81001; 82962; 83735; 84560; 85025; 85384; 85610; 85730; 86592; 86900; 86901; 87340; 88307; 90715; 99464; J0690; J1885; J2274; J2370; J2405; J2590; J3475; J7120